=== PATIENT | male | born 1980 | race Caucasian/White ===

== ENCOUNTER → 2018-03-10 10:24 | Outpatient (CLI) | payer OTHER, SELFPAY ==
--- NOTE | 2018-03-10 10:30 | XR_ITS ---
XR chest 2V HISTORY: ITS.REASON: CHEST PAIN ORDERING PHYSICIAN: Ginny Hernandez PATIENT AGE: 38 years COMPARISON: 01/21/2011 FINDINGS: The cardiomediastinal silhouette and pulmonary vascularity are within normal limits. The lungs are clear without infiltrates, suspicious nodules, or pleural effusions. Calcified granulomas present in the lingula. No acute bony abnormalities. IMPRESSION: No change with no acute finding
== END ==
PROVIDERS: PCP Nurse Practitioner; Visit Provider Nurse Practitioner
DX: R07.9 Chest pain, unspecified (principal)
CPT/HCPCS: 71046

== ENCOUNTER → 2018-03-18 14:57 | Outpatient (CLI) | payer OTHER, SELFPAY ==
--- NOTE | 2018-03-18 15:03 | US_ITS ---
US scrotum HISTORY: Painful testicular lumps ITS.REASON: TESTICULAR LUMP ORDERING PHYSICIAN: Ginny Hernandez PATIENT AGE: 38 years FINDINGS: The right testicle measures 4.3 x 2.4 x 2.8 cm. No testicular mass evident. Blood flow is present within the right testicle. Epididymis has an unremarkable appearance. Only minimal amount fluid noted on the right. Left testicle measures 3.9 x 2.5 x 3 cm. No mass evident. Blood flow is present. There is a small left hydrocele. Septations are present within the hydrocele inferiorly corresponding to the palpable area of interest. IMPRESSION: 1. No intratesticular nodule or mass. 2. Bilateral testicular blood flow is present. 3. There is a small left hydrocele with septations along the inferior margin corresponding to the palpable abnormality
== END ==
PROVIDERS: Family Provider Nurse Practitioner; PCP Nurse Practitioner; Visit Provider Nurse Practitioner
DX: N50.9 Disorder of male genital organs, unspecified (principal)
CPT/HCPCS: 76870

== ENCOUNTER → 2018-11-19 09:58 | Outpatient (CLI) | payer OTHER, SELFPAY ==
--- NOTE | 2018-11-19 10:11 | XR_ITS ---
XR shoulder LT min 2V HISTORY: Posttraumatic pain ITS.REASON: LEFT SHOULDER INJURY ORDERING PHYSICIAN: Lashae Murguia PATIENT AGE: 38 years Comparison: None FINDINGS: No fracture or dislocation. No lytic or blastic change. There is normal mineralization. The joint spaces are well-preserved. No significant degenerative/arthritic changes. No erosive changes evident. Incidental bone island noted in the humeral head IMPRESSION: Negative, no acute finding
== END ==
PROVIDERS: PCP Nurse Practitioner Family; Visit Provider Nurse Practitioner Family
DX: S49.92XA Unspecified injury of left shoulder and upper arm, initial encounter (principal); M25.612 Stiffness of left shoulder, not elsewhere classified
CPT/HCPCS: 73030

== ENCOUNTER → 2018-12-09 12:43 | Outpatient (CLI) | payer OTHER, SELFPAY ==
--- NOTE | 2018-12-09 12:47 | MR_ITS ---
MR shoulder LT wo con HISTORY:Left shoulder pain with limited range of motion ITS.REASON: Lt shoulder injury ORDERING PHYSICIAN: Radha Shea MD PATIENT AGE: 38 years Comparison: 11/19/2018 TECHNIQUE: Standard multiplanar multiecho sequences are performed without contrast. FINDINGS: There is mild hypertrophy of the acromioclavicular joint without significant impingement from the acromioclavicular hypertrophy. There are hypertrophic changes of the undersurface of the acromion with subacromial stenosis. Subacromial space is approximately 5 mm. No evidence of rotator cuff tear or significant tendinopathy/tendinosis of the distal infraspinatus tendon. There is some slight increase in T2 signal involving the distal aspect of the subscapularis suggesting mild tendinopathy/tendinosis. Teres minor tendon has an unremarkable appearance. Bicipital tendon is in place. No evidence of labral tear. No significant effusion. No fracture or bone bruise apparent. There is a small bone within the humeral head. No significant degenerative change of the humeral head or greater tuberosity. IMPRESSION: 1. No evidence of rotator cuff tear. 2. Mild tendinopathy/tendinosis of the subscapularis tendon. 3. Subacromial stenosis from a spur along the undersurface of the acromium. A type II acromion is noted and there is mild hypertrophy of the acromioclavicular joint.
== END ==
PROVIDERS: PCP Nurse Practitioner Family; Visit Provider Orthopaedic Surgery
DX: S49.92XA Unspecified injury of left shoulder and upper arm, initial encounter (principal); M25.512 Pain in left shoulder
CPT/HCPCS: 73221

== ENCOUNTER → 2019-05-18 10:30 | Outpatient (CLI) | payer OTHER, SELFPAY ==
--- NOTE | 2019-05-18 10:36 | XR_ITS ---
XR wrist RT min 3V HISTORY pain and swelling ITS.REASON: RT WRIST PAIN,PAIN IN JOINTS ORDERING PHYSICIAN: Lashae Murguia APRN PATIENT AGE: 39 years Comparison: None FINDINGS: No acute fracture or dislocation evident. There is a small calcific density at the base and ulnar aspect of the fifth metacarpal. His could be due to an old injury. The remaining wrist has an unremarkable appearance. IMPRESSION: Faint calcification at the base of the fifth metacarpal. This could be due to an old injury. Otherwise negative.
--- NOTE | 2019-05-18 10:36 | XR_ITS ---
XR hand RT min 3V HISTORY: Pain in hand ITS.REASON: RT WRIST PAIN,PAIN IN JOINTS ORDERING PHYSICIAN: Lashae Murguia APRN PATIENT AGE: 39 years COMPARISON: None FINDINGS: No fracture or dislocation. No lytic or blastic change. There is normal mineralization.. The joint spaces are well-preserved. No significant degenerative/arthritic changes. No erosive changes evident.. IMPRESSION: Negative, no acute finding
== END ==
PROVIDERS: PCP Nurse Practitioner Family; Visit Provider Nurse Practitioner Family
DX: M25.531 Pain in right wrist (principal); M25.541 Pain in joints of right hand
CPT/HCPCS: 73110; 73130

== ENCOUNTER → 2019-06-02 09:17 | Outpatient (CLI) | payer OTHER, SELFPAY ==
--- NOTE | 2019-06-02 09:19 | US_ITS ---
US abdomen limited History:L liver enzymes, mid abdominal tenderness Ordering Physician:Florinda Cooney MD Patient Age: 39 years Comparison:None Findings: Pancreas:Unremarkable. No obvious mass or abnormal fluid collection. No ductal dilatation Liver:There is generalized increase echogenicity of liver consistent with fatty liver.. No obvious mass or abnormal fluid collection. No ductal dilatation Right Kidney:Unremarkable. Normal size and echogenicity. No hydronephrosis Gallbladder:No gallstones, gallbladder wall thickening, pericholecystic fluid, or biliary dilatation. Small amount sludge within the gallbladder Impression: 1. Fatty liver. 2. Small amount of gallbladder sludge. No gallstones or other significant anomalies
== END ==
PROVIDERS: PCP Internal Medicine Rheumatology; Visit Provider Internal Medicine Rheumatology
DX: F10.20 Alcohol dependence, uncomplicated (principal); R94.5 Abnormal results of liver function studies
CPT/HCPCS: 76705

== ENCOUNTER → 2019-06-08 09:34 | Outpatient (POV) | payer OTHER, SELFPAY | PROVIDERS: Visit Provider Specialist | DX: M25.531 Pain in right wrist (principal); R20.0 Anesthesia of skin | CPT/HCPCS: 95886; 95908 ==

== ENCOUNTER → 2019-11-09 10:11 | Outpatient (CLI) | payer OTHER, SELFPAY ==
--- NOTE | 2019-11-09 10:16 | NM_ITS ---
PROCEDURE: NM HEPATOBILIARY W PHARM CLINICAL INDICATION: RUQ PAIN COMPARISON: US GALLBLADDER from 11/02/2019 TECHNIQUE: DOSE: 8.71 mCi technetium Choletec and 1.9 mcg of CCK FINDINGS: Homogeneous activity is present within the hepatic parenchyma. Activity is present in the gallbladder by 10 minutes. Activity is present in the small bowel by 40 minutes. The gallbladder ejection fraction is calculated to be 99 percent. CCK-The patient did not report pain or other symptoms during CCK infusion. IMPRESSION: Unremarkable hepatobiliary scan with normal gallbladder ejection fraction Dictated by: Sourav Marr MD 11/09/2019 14:50 Electronically signed by Sourav Marr MD in [place] 11/09/2019 14:50
== END ==
PROVIDERS: PCP Nurse Practitioner Family; Visit Provider Nurse Practitioner Family
DX: K82.8 Other specified diseases of gallbladder (principal); R10.11 Right upper quadrant pain
CPT/HCPCS: 78227; A9537; J2805

== ENCOUNTER → 2020-11-18 15:49 | Outpatient (CLI) | payer BC, SELFPAY ==
--- NOTE | 2020-11-18 16:09 | XR_ITS ---
PROCEDURE: XR CHEST 2V CLINICAL HISTORY: CHEST PAIN Left-sided chest pain COMPARISON: CT [facility] CT CHEST W/O CONTRAST from 03/22/2016 CR CXR2V XR chest 2V from 03/10/2018 FINDINGS: The cardiomediastinal silhouette and pulmonary vascularity are within normal limits. Patchy increased markings left perihilar region and in the left retrocardiac area suspicious for perihilar left lower lobe infiltrate. Right lung is clear. No acute bony abnormalities. IMPRESSION: Left perihilar and left lower lobe infiltrate. Suggest following till clear Dictated by: Sourav Marr MD 11/18/2020 16:31 Sourav Marr MD in [place] 11/18/2020 16:31
== END ==
PROVIDERS: PCP Nurse Practitioner Family; Visit Provider Nurse Practitioner Family
DX: R07.9 Chest pain, unspecified (principal); R06.02 Shortness of breath
CPT/HCPCS: 71046

== ENCOUNTER → 2020-11-22 09:10 | Outpatient (CLI) | payer BC, SELFPAY ==
[2020-11-22 09:53] LABS: Basophils # 0.1 K/mm3 (0-0.2); Basophils % 1.2 % (0.1-2.0); Eosinophils # 0.4 K/mm3 (0.0-0.4); Hematocrit 53.5 % (42.0-52.0); Lymphocytes # 2.3 K/mm3 (0.7-4.5); Lymphocytes % 30.6 % (10-50); Mean Corpuscular HGB Conc 33.6 g/dL (31.8-35.4); Mean Corpuscular Hemoglobin 32.7 pg (27.0-31.2); Mean Corpuscular Volume 97.3 fl (80-94); Mean Platelet Volume 7.3 fl (7.4-10.4); Monocytes # 0.6 K/mm3 (0.1-1.0); Monocytes % 7.9 % (1.7-9.3); Neutrophils # 4.2 K/mm3 (1.8-7.8); Neutrophils % 55.3 % (37.0-80.0); Platelet Count 278 K/mm3 (142-424); White Blood Count 7.5 K/mm3 (4.8-10.8)
[2020-11-22 10:11] LABS: Chloride 105 mmol/L (98-107)
[2020-11-22 10:12] LABS: Potassium 4.4 mmoL/L (3.5-5.1); Sodium 136 mmol/L (136-145)
[2020-11-22 10:14] LABS: Alanine Aminotransferase 28 U/L (12-78); Alkaline Phosphatase 88 U/L (38-126); Anion Gap 9.4 mEq/L (5-15); Aspartate Amino Transferase 31 U/L (17-59); Bilirubin,Total 0.4 mg/dl (0.2-1.3); Blood Urea Nitrogen 18 mg/dl (9-20); Carbon Dioxide 26 mmol/L (22.0-30.0); Estimated Glomerular Filt Rate 82 ml/min (>60); GFR (African American) 99 ML/MIN (>60)
[2020-11-22 10:15] LABS: Albumin/Globulin Ratio 1.5 (1.1-1.8); Calcium 9.3 mg/dl (8.4-10.2); Cholesterol 174 mg/dl (140-200); Globulin 2.7 g/dL (1.3-3.2); Glucose 99 mg/dl (74-100); HDL Cholesterol 59 mg/dl (40-60); Total Protein,Serum 6.7 g/dl (6.3-8.2); Triglycerides 111 mg/dl (30-150); VLDL Cholesterol 22 mg/dL (0-40)
[2020-11-22 10:16] LABS: Bilirubin,Direct 0.1 mg/dl (0.0-0.4)
[2020-11-22 10:21] LABS: C-Reactive Protein 5.7 mg/L (0-4)
[2020-11-22 10:26] LABS: Direct LDL Cholesterol 96.27 mg/dL (100-129)
[2020-11-22 10:27] LABS: Troponin I < 0.01 ng/ml (0.00-0.034)
[2020-11-22 10:30] LABS: Free T4 (Free Thyroxine) 0.92 ng/dl (0.78-2.19)
[2020-11-22 16:51] LABS: Chol/HDL Ratio 2.9 (1-3.5)
== END ==
PROVIDERS: Nurse Practitioner Family; Visit Provider Urology
DX: R00.2 Palpitations (principal); R07.9 Chest pain, unspecified; F10.10 Alcohol abuse, uncomplicated; F17.200 Nicotine dependence, unspecified, uncomplicated; R06.83 Snoring; R40.0 Somnolence; Z82.49 Family history of ischemic heart disease and other diseases of the circulatory system
CPT/HCPCS: 36415; 80053; 80061; 82248; 83735; 84439; 84443; 84484; 85025; 86140

== ENCOUNTER → 2020-12-06 06:44 | Outpatient (CLI) | payer BC, SELFPAY ==
--- NOTE | 2020-12-06 06:45 | CA_ITS ---
APPROVED REPORT Exam: Exercise Treadmill Technologist: Kathe Enriquez Ht: 6 ft 0 in Wt: 213 lbs BSA: 2.19 m2 HR: 62 bpm BP: 115/82 mmHg Indications: Chest pain Medical History Medications: ADALimumab,,,,, Stress Test Details Test: Carlos HR Resting HR: 73 bpm Max Heart Rate (APMHR): 178 bpm Max HR Achieved: 149 bpm Target HR (85% APMHR): 151 bpm % of APMHR: 83 Recovery HR: 95 bpm BP Resting BP: 115.0/82.0 mmHg Max BP: 172.0/84.0 mmHg Recovery BP: 128.0/89.0 mmHg ECG Resting ECG: Normal sinus rhythm, NS ST-T abnormalities Clinical Exercise duration: 09:47 min Highest Stage Achieved: Exercise capacity: 10.1 METs Stress ECG Conclusion Patient exercised 9:47 on Carlos Protocol. Test stopped due to shortness of air, fatigue. Symptoms: Transient mild chest pain in early stages of exercise. Arrhythmias/Ectopy: Occasional PAC ST-T Changes: Normal ST response to exercise Conclusion: Normal GXT. Myoview images reported separately. Test Summary Stage 3 03:00 14.0 3.4 134 . . . Myoview Injected REST . . . . . . . Standing REST 03:22 0.0 0.0 73 . 115/ 82 . . Stage 1 01:00 10.0 1.7 95 . . . . Stage 1 02:00 10.0 1.7 97 . . . . Stage 1 03:00 10.0 1.7 102 . 152/ 78 . . Stage 2 . . . . . . . Chest pain Stage 2 01:00 12.0 2.5 106 . . . . Stage 2 02:00 12.0 2.5 110 . . . . Stage 2 03:00 12.0 2.5 112 . 172/ 84 . . Stage 3 01:00 14.0 3.4 124 . . . . Stage 3 02:00 14.0 3.4 129 . . . . Stage 3 . . . . . . . Myoview Injected Stage 3 03:00 14.0 3.4 134 . . . . Stage 4 00:47 16.0 4.2 149 . . . Stop exercise at 09:47 RECOVERY 01:00 0.0 0.0 123 . 165/ 70 . . RECOVERY 02:00 0.0 0.0 110 . 165/ 70 . . RECOVERY 03:00 0.0 0.0 85 . 165/ 70 . . RECOVERY 04:00 0.0 0.0 98 . 157/ 86 . . RECOVERY 05:00 0.0 0.0 93 . 157/ 86 . . RECOVERY 05:19 0.0 0.0 95 . 128/ 89 . . Electronically signed by : George Ramirez, 12/07/2020 06:42:37
--- NOTE | 2020-12-06 06:45 | NM_ITS ---
APPROVED REPORT Exam: Nuclear Stress Test Indication: Chest pain, SOB, Tobacco use, Family history Patient Location: Outpatient Stress Tech: Kathe Enriquez NM Tech:Lizzeth Falcon, ARRT, RT (R)(N) Ht: 6 ft 0 in Wt: 218 lbs HR: 62 bpm BP: 115/82 mmHg BSA: 2.21 m2 History: Chest pain, SOB, Tobacco use, Family history Procedure: Patient exercised on Carlos protocol 9:45 minutes and sec, resting heart rate 62 bpm, resting blood pressure 115/82 mmHg, with exercise maximum heart rate achived was 149 bpm which is 84 % of the maximum predicted heart rate and blood pressure was 172/84 mmHg. Test was stopped due to SOA and fatigue. Patient has Good exercise capacity, achieved 10.1 METs of workload on treadmill, the blood pressure response to exercise was Adequate resting electrocardiogram showed sinus rhythm,. Electrocardiogram With exercise there is less than 1.[address] segment depression noted from the baseline EKG. The EKG portion of the exercise Myoview is nondiagnostic as patient did not achieve the target heart rate. Cardiac Stress and Resting SPECT Images: Cardiac Stress and Resting SPECT images were obtained using technetium 99m Myoview 32.5 mCi stress and 10.42 mCi at rest. Gated SPECT for analysis of segmental wall motion and calculation of the ejection fraction also done. Cardiac stress and resting SPECT images show uniform myocardial activity without segmental perfusion abnormality, computer derived ejection fraction is 52% with no regional wall motion abnormality, right ventricle is normal size and contractility. Conclusion: 1. The EKG portion of the exercise Myoview is nondiagnostic as patient did not achieve the target heart rate, patient has good exercise capacity achieved 10.1 mets of workload on treadmill, the blood pressure response to exercise was adequate, there was no exercise-induced chest discomfort. 2. No scintigraphic evidence of reversible ischemia seen at this level of exercise, computer derived ejection fraction is 52% with no regional wall motion abnormality. Electronically signed by : George Ramirez, 12/07/2020 06:55:55
--- NOTE | 2020-12-06 06:45 | CA_ITS ---
APPROVED REPORT EXAM: Comprehensive 2D, Doppler, and color-flow Echocardiogram Insole Cementer: Akilah Pop CRT Ht: 6 ft 0 in Wt: 213lbs BSA: 2.19 BP: 124/84 mmHg Indications: Abnormal ECG, Shortness of Breath, Fatigue, smoker, palpitations, alcohol use, 2D Dimensions LVOT 2.02 cm (M/F) 1.5-2.5 LVEF ([place]) 48.00 % LV Volume 138.90 mL M-Mode Dimensions RVDd 2.61 cm (0.9-2.6) LVDd 6.16 cm (3.5-5.7) LVDs 4.82 cm (3.5-5.7) IVSd 0.93 cm (0.6-1.1) PWd 0.62 cm (0.6-1.1) EF (Teich) 43.20% FS 21.80% EDV (Teich) 191.10 mL ESV (Teich) 108.60 mL LV Diastology E Decel Time 150.00 (160-240 msec) E/A Ratio 1.54 MED E' 9.10 (< 7 cm/sec) E'/MED E' Ratio 8.19 (>14) LAT E' 9.10 (<10 cm/sec) E/LAT E' Ratio 8.19 (>14) Aortic Valve AO Peak GR. 7.80 mmHg Mitral Valve MV E Max Manoj. 75.00 (40-130 cm/s) MV A Velocity 48.00 (40-130 cm/s) E/A Ratio 1.54 MV Decel. Time 150.00 (160-240 ms) MV PHT 44.00 ms Pulmonary Valve PV Peak Velocity 58.00 (50-150 cm/s) Tricuspid Valve TR P. Velocity 167.00 cm/s RAP Estimate 10.00 mmHg RVSP 21.20 mmHg Left Ventricle Left atrium is normal size, left ventricle is normal size, there is no concentric left ventricular hypertrophy, visually estimated ejection fraction 55% with no regional wall motion abnormality, diastolic parameters are within normal range. Right Ventricle Right atrium and right ventricle are normal size and contractility. Aortic Valve Aortic valve is minimally thickened and fibrosed, there is no aortic stenosis or aortic insufficiency. Mitral Valve Mitral valve is grossly normal, there is trace mitral regurgitation. Tricuspid Valve Tricuspid valve grossly normal, there is trace tricuspid regurgitation, tricuspid regurgitation jet velocity is inadequate for calculation of the right ventricular systolic pressure. Pulmonic Valve Pulmonic valve is poorly visualized. Great Vessels Aortic root is normal size. Pericardium No significant pericardial effusion noted. Conclusion 1. Normal left ventricular size, preserved left ventricular systolic function, visually estimated ejection fraction 55% with no regional wall motion abnormality, diastolic parameters are within normal range. 2. Trace mitral and tricuspid regurgitation. 3. No significant pericardial effusion noted. Electronically signed by : George Ramirez, 12/07/2020 06:09:08
--- NOTE | 2020-12-06 08:29 | HMH.ITSHM ---
Current Home Medications as stated by this patient Kirk Austin or accounting representative. []ADALIMUMAB
== END ==
PROVIDERS: PCP Nurse Practitioner Family; Visit Provider Urology
DX: R07.9 Chest pain, unspecified (principal); R00.2 Palpitations; F10.10 Alcohol abuse, uncomplicated; F17.200 Nicotine dependence, unspecified, uncomplicated; R06.83 Snoring; R40.0 Somnolence; Z82.49 Family history of ischemic heart disease and other diseases of the circulatory system
CPT/HCPCS: 78452; 93017; 93306; A9502

== ENCOUNTER → 2020-12-22 12:49 | Outpatient (CLI) | payer BC, SELFPAY ==
--- NOTE | 2020-12-22 12:49 | CT_ITS ---
Procedure: CT ANGIO NECK CLINICAL HISTORY: Numbness in arm CHEST PAIN INTO LEFT ARM, NUMBNESS IN LEFT HAND NO PRIOR 100ML ISO 370, 40ML SALINE COMPARISON: No exams were available for comparison TECHNIQUE: IV Contrast: 100ml Isovue 370 Axial images obtained with sagittal and coronal reformats. All CT scans at the facility use one or more dose reduction, viz: automated exposure control, ma/kV adjustment per patient size (including targeted exams where dose is matched to indication, i.e. head), or iterative reconstruction technique. FINDINGS: The aortic arch has an unremarkable appearance. Right carotid: Right common and internal carotid arteries have an unremarkable appearance without evidence of stenosis dissection or ulceration. Left carotid: Right common and internal carotid artery have an unremarkable appearance without stenosis ulceration or dissection. Vertebrals: The vertebral arteries are symmetric. No stenosis occlusion or ulceration apparent. No evidence of dissection. Incidental note is made moderate mucosal thickening of the left maxillary sinus with a small air-fluid level and mild mucosal thickening of the ethmoid sinuses in the sphenoid sinus. There is mild prominence of the adenoids. There are scattered mildly prominent lymph nodes in the neck the measuring up to 2.5 by 1 cm in the left submandibular region IMPRESSION: 1. Negative CT angiogram of the neck. 2. Mild paranasal sinus disease. 3. Mild cervical adenopathy. Dictated by: Sourav Marr MD 12/23/2020 15:10 Sourav Marr MD in [place] 12/23/2020 15:10
--- NOTE | 2020-12-22 12:49 | CT_ITS ---
PROCEDURE: CT CHEST WO/W CON CLINCAL INDICATION: chest pain Chest pain into left arm/numbness in hand COMPARISON: CT [facility] CT CHEST W/O CONTRAST from 03/22/2016 TECHNIQUE: IV Contrast: 75ml Isovue 370 Axial images obtained with sagittal and coronal reformats. All CT scans at the facility use one or more dose reduction, viz: automated exposure control, ma/kV adjustment per patient size (including targeted exams where dose is matched to indication, i.e. head), or iterative reconstruction technique. FINDINGS: HEART AND MEDIASTINAL STRUCTURES: Scattered mildly prominent mediastinal lymph nodes are present slightly larger compared to the previous exam. Largest node is in the subcarinal region measuring to 2 point 1.3 cm previously 1.9 0.8 cm. No evidence of aortic aneurysm or dissection. There are few small axillary lymph nodes also present. LUNGS AND PLEURAL SPACES: No lobar consolidation or collapse is evident. There is some mild bronchial thickening. No suspicious pulmonary nodules. Calcified granuloma is present within the lingula. BONY STRUCTURES: No acute bony abnormalities apparent. UPPER ABDOMEN: Fatty liver ADDITIONAL FINDINGS: No other significant abnormalities. IMPRESSION: Mildly prominent mediastinal lymph nodes slightly more prominent when compared to the previous exam along with mildly prominent axillary lymph nodes which are not significantly changed. No lobar consolidation or collapse with no acute finding Dictated by: Sourav Marr MD 12/23/2020 15:03 Sourav Marr MD in [place] 12/23/2020 15:03
== END ==
PROVIDERS: PCP Nurse Practitioner Family; Visit Provider Internal Medicine Cardiovascular Disease
DX: R07.9 Chest pain, unspecified (principal); R00.2 Palpitations
CPT/HCPCS: 70498; 71270; Q9967

== ENCOUNTER → 2021-02-21 12:35 | Outpatient (CLI) | payer BC, SELFPAY ==
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
[2021-02-21 13:16] LABS: Basophils # 0.1 K/mm3 (0-0.2); Eosinophils # 0.4 K/mm3 (0.0-0.4); Eosinophils % 4.8 % (0.1-12.0); Hematocrit 50.1 % (42.0-52.0); Hemoglobin 16.8 g/dL (14.1-18.0); Lymphocytes # 2.4 K/mm3 (0.7-4.5); Lymphocytes % 32.7 % (10-50); Mean Corpuscular HGB Conc 33.6 g/dL (31.8-35.4); Mean Corpuscular Hemoglobin 31.5 pg (27.0-31.2); Mean Corpuscular Volume 93.8 fl (80-94); Mean Platelet Volume 7.5 fl (7.4-10.4); Monocytes # 0.5 K/mm3 (0.1-1.0); Monocytes % 7.3 % (1.7-9.3); Neutrophils # 4.1 K/mm3 (1.8-7.8); Neutrophils % 54.3 % (37.0-80.0); Platelet Count 309 K/mm3 (142-424); Red Blood Count 5.34 M/mm3 (4.60-6.20); Red Cell Distribution Width 13.2 % (11.5-17.5); White Blood Count 7.5 K/mm3 (4.8-10.8)
[2021-02-21 13:59] LABS: Chloride 106 mmol/L (98-107); Sodium 139 mmol/L (136-145)
[2021-02-21 14:00] LABS: Potassium 4.5 mmoL/L (3.5-5.1)
[2021-02-21 14:02] LABS: Alanine Aminotransferase 49 U/L (12-78); Albumin Level 4.6 g/dl (3.5-5.0); Albumin/Globulin Ratio 1.9 (1.1-1.8); Alkaline Phosphatase 87 U/L (38-126); Anion Gap 10.5 mEq/L (5-15); Aspartate Amino Transferase 50 U/L (17-59); Bilirubin,Total 0.7 mg/dl (0.2-1.3); Blood Urea Nitrogen 10 mg/dl (9-20); Carbon Dioxide 27 mmol/L (22.0-30.0); Estimated Glomerular Filt Rate 106 ml/min (>60); GFR (African American) 128 ML/MIN (>60); Globulin 2.4 g/dL (1.3-3.2)
[2021-02-21 14:03] LABS: Calcium 9.3 mg/dl (8.4-10.2); Glucose 79 mg/dl (74-100)
[2021-02-21 14:33] LABS: Thyroid Stimulating Hormone 1.55 uIU/mL (0.465-4.68)
[2021-02-21 14:37] LABS: Ferritin 145 ng/ml (17.9-464)
[2021-02-24 18:27] LABS: Antinuclear Antibodies (ANA) NEGATIVE
== END ==
PROVIDERS: PCP Nurse Practitioner Family; Visit Provider Nurse Practitioner Family
DX: M54.2 Cervicalgia (principal); M54.40 Lumbago with sciatica, unspecified side; L65.9 Nonscarring hair loss, unspecified
CPT/HCPCS: 36415; 72084; 80053; 82728; 84443; 85025; 86038

== ENCOUNTER 2021-06-24 02:38 | Emergency (ER) | payer BC, SELFPAY ==
[2021-06-24 02:39] VITALS: BP 133/92; PULSE 85; RESP 18; TEMP 36.8; O2SAT 97; BMI 31.8
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
[2021-06-24 02:55] VITALS: BP 133/92; PULSE 85; RESP 18; TEMP 36.8; O2SAT 97
== END 2021-06-24 03:02 | disposition home or self-care (01) ==
PROVIDERS: Emergency Provider Emergency Medicine; PCP Nurse Practitioner Family
DX: Z04.1 Encounter for examination and observation following transport accident (principal); V89.2XXA Person injured in unspecified motor-vehicle accident, traffic, initial encounter; K21.9 Gastro-esophageal reflux disease without esophagitis; F17.210 Nicotine dependence, cigarettes, uncomplicated
CPT/HCPCS: 99282

== ENCOUNTER → 2021-07-26 11:57 | Outpatient (CLI) | payer BC, SELFPAY ==
[2021-07-26 14:44] LABS: T4 (Thyroxine) 10.7 ug/dl (5.53-11.0)
[2021-07-26 14:57] LABS: Thyroid Stimulating Hormone 1.44 uIU/mL (0.465-4.68)
== END ==
PROVIDERS: Visit Provider Dermatology
DX: L63.0 Alopecia (capitis) totalis (principal); L71.8 Other rosacea
CPT/HCPCS: 36415; 84436; 84443

== ENCOUNTER 2021-07-29 21:07 | Emergency (ER) | payer BC, SELFPAY ==
[2021-07-29 21:07] VITALS: BP 130/85; PULSE 84; RESP 16; TEMP 36.7; O2SAT 98; BMI 28.7
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
[2021-07-29 21:30] VITALS: BP 105/75; PULSE 79; RESP 16; O2SAT 97
--- NOTE | 2021-07-29 21:40 | PC.NURSE ---
Liz. spoke with MD Bonnie at [facility] and pt has been accepted to ED.
[2021-07-29 22:00] VITALS: BP 129/82; PULSE 81; O2SAT 96
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
[2021-07-29 22:30] VITALS: BP 115/75; PULSE 77; RESP 18; O2SAT 96
--- NOTE | 2021-07-29 22:40 | PC.NURSE ---
Pt refusing to take EMS to [facility]. Pt has signed AMA form and is going to have family member take him to [facility] ED.
[2021-07-29 22:52] VITALS: BP 98/58; PULSE 84; RESP 16; TEMP 36.7; O2SAT 97
[2021-07-29 22:54] LABS: Chloride 104 mmol/L (98-107); Potassium 3.8 mmoL/L (3.5-5.1); Sodium 139 mmol/L (136-145)
[2021-07-29 22:57] LABS: Anion Gap 16.8 mEq/L (5-15); Blood Urea Nitrogen 16 mg/dl (9-20); Carbon Dioxide 22 mmol/L (22.0-30.0); Creatinine Clearance Estimated 144 mL/min (50-200); Estimated Glomerular Filt Rate 92 ml/min (>60); GFR (African American) 111 ML/MIN (>60); Glucose 100 mg/dl (74-100)
[2021-07-29 22:58] LABS: Calcium 8.9 mg/dl (8.4-10.2)
[2021-07-29 22:59] LABS: Basophils # 0.1 K/mm3 (0-0.2); Basophils % 0.9 % (0.1-2.0); Eosinophils # 0.1 K/mm3 (0.0-0.4); Eosinophils % 0.7 % (0.1-12.0); Hematocrit 49.4 % (42.0-52.0); Hemoglobin 15.9 g/dL (14.1-18.0); Lymphocytes # 3.1 K/mm3 (0.7-4.5); Lymphocytes % 32.9 % (10-50); Mean Corpuscular HGB Conc 32.1 g/dL (31.8-35.4); Mean Corpuscular Hemoglobin 31.4 pg (27.0-31.2); Mean Corpuscular Volume 97.7 fl (80-94); Mean Platelet Volume 8.1 fl (7.4-10.4); Monocytes # 0.4 K/mm3 (0.1-1.0); Monocytes % 4.6 % (1.7-9.3); Neutrophils # 5.6 K/mm3 (1.8-7.8); Neutrophils % 60.8 % (37.0-80.0); Platelet Count 357 K/mm3 (142-424); Red Blood Count 5.05 M/mm3 (4.60-6.20); Red Cell Distribution Width 12.8 % (11.5-17.5); White Blood Count 9.3 K/mm3 (4.8-10.8)
== END 2021-07-29 22:56 | disposition short-term general hospital (02) ==
PROVIDERS: Emergency Provider Emergency Medicine; PCP Nurse Practitioner Family
DX: S62.522B Displaced fracture of distal phalanx of left thumb, initial encounter for open fracture (principal); S60.943A Unspecified superficial injury of left middle finger, initial encounter; S60.945A Unspecified superficial injury of left ring finger, initial encounter; Z23 Encounter for immunization; W39.XXXA Discharge of firework, initial encounter; Y92.89 Other specified places as the place of occurrence of the external cause; K21.9 Gastro-esophageal reflux disease without esophagitis; F17.210 Nicotine dependence, cigarettes, uncomplicated
CPT/HCPCS: 73130; 80048; 85025; 90715; 96365; 96372; 96375; 99282

== ENCOUNTER 2021-08-14 18:35 | Inpatient (IN) | payer BC, SELFPAY ==
[2021-08-14] VITALS (10 sets, daily range): BP systolic 114–144; BP diastolic 65–94; PULSE 86–94; RESP 19–29; TEMP 36.8; O2SAT 94–98; BMI 28.7; BMI 28.3
--- NOTE | 2021-08-14 18:35 | ECG_ITS ---
APPROVED REPORT Exam: Resting ECG HR:93 bpm ECG Measurements Heart Rate 93 AXES [place] 144 P 44 QRSd 82 QRS 50 QT 334 T 63 QTc 415 Conclusion Normal sinus rhythm Normal ECG Electronically signed by : Jerad Castaneda MD 08/16/2021 07:30:54
--- NOTE | 2021-08-14 18:43 | XR_ITS ---
PROCEDURE INFORMATION: Exam: XR Chest Exam date and time: 08/14/2021 6:43 PM Age: 41 years old Clinical indication: Sternal or substernal pain; Patient HX: Chest pain, smoker. ; Additional info: Cp TECHNIQUE: Imaging protocol: XR of the chest. Views: 1 view. COMPARISON: CT CHEST WO/W CON 12/22/2020 1:25 PM FINDINGS: Lungs: There is airspace disease in the left lower lobe concerning for pneumonia. Mild interstitial opacities also in the right lung base. Pleural spaces: Unremarkable. No pleural effusion. No pneumothorax. Heart/Mediastinum: Unremarkable. No cardiomegaly. Bones/joints: Unremarkable. Other findings: Mild left effusion. IMPRESSION: Bilateral lower lobe pneumonia left greater than right.
--- NOTE | 2021-08-14 18:49 | PC.NURSE ---
POISON CONTROL CONTACTED, SPOKE WITH DEANDRA. CHEST XRAY RECOMMENDED. CONCERN FOR ASPIRATION PNA
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
[2021-08-14 19:18] LABS: Chloride 95 mmol/L (98-107); Potassium 4.2 mmoL/L (3.5-5.1); Sodium 129 mmol/L (136-145)
[2021-08-14 19:21] LABS: Alanine Aminotransferase 28 U/L (12-78); Albumin Level 4.2 g/dl (3.5-5.0); Albumin/Globulin Ratio 1.4 (1.1-1.8); Alkaline Phosphatase 97 U/L (38-126); Anion Gap 14.2 mEq/L (5-15); Aspartate Amino Transferase 32 U/L (17-59); Bilirubin,Total 1.2 mg/dl (0.2-1.3); Blood Urea Nitrogen 12 mg/dl (9-20); Carbon Dioxide 24 mmol/L (22.0-30.0); Creatinine Clearance Estimated 144 mL/min (50-200); Estimated Glomerular Filt Rate 92 ml/min (>60); GFR (African American) 111 ML/MIN (>60); Globulin 3.1 g/dL (1.3-3.2); Total Protein,Serum 7.3 g/dl (6.3-8.2)
[2021-08-14 19:22] LABS: Glucose 118 mg/dl (74-100)
[2021-08-14 19:26] LABS: Basophils # 0.1 K/mm3 (0-0.2); Basophils % 0.2 % (0.1-2.0); Hematocrit 48.7 % (42.0-52.0); Hemoglobin 16.3 g/dL (14.1-18.0); Lymphocytes # 1.4 K/mm3 (0.7-4.5); Lymphocytes % 6.5 % (10-50); Mean Corpuscular HGB Conc 33.5 g/dL (31.8-35.4); Mean Corpuscular Hemoglobin 31.9 pg (27.0-31.2); Mean Corpuscular Volume 95.2 fl (80-94); Mean Platelet Volume 7.2 fl (7.4-10.4); Monocytes # 1.2 K/mm3 (0.1-1.0); Monocytes % 5.6 % (1.7-9.3); Neutrophils # 18.5 K/mm3 (1.8-7.8); Neutrophils % 87.6 % (37.0-80.0); Platelet Count 273 K/mm3 (142-424); Red Blood Count 5.12 M/mm3 (4.60-6.20); Red Cell Distribution Width 12.3 % (11.5-17.5); White Blood Count 21.1 K/mm3 (4.8-10.8)
[2021-08-14 19:31] LABS: MANUAL DIFFERENTIAL MANUAL DIFFERENTIAL (MANUAL DIFF)
[2021-08-14 19:33] LABS: Troponin I < 0.01 ng/ml (0.00-0.034)
--- NOTE | 2021-08-14 19:44 | PC.NURSE ---
spoke with dr ling. ok to admit.
[2021-08-14 20:05] LABS: Coronavirus 19, PCR Not Detected (NotDetected); Influenza A, PCR Not Detected (NotDetected); Influenza B, PCR Not Detected (NotDetected)
[2021-08-14 20:27] LABS: Lymphocytes % 11 % (10-50); Monocytes % 3 % (2-9); Neutrophils % 86 % (42-76); Platelet Estimate Normal; Stomatocytes 1+; Total Cells Counted 100
--- NOTE | 2021-08-14 21:41 | PC.NURSE ---
receiving call from poison control. updated to status
[2021-08-14 22:42] LABS: Troponin I < 0.01 ng/ml (0.00-0.034)
[2021-08-15] VITALS (15 sets, daily range): BP systolic 105–157; BP diastolic 59–87; PULSE 81–117; RESP 18–24; TEMP 36.7–38.3; O2SAT 92–99; BMI 28.3
--- NOTE | 2021-08-15 00:15 | PC.NURSE ---
Verbal order obtained to d/c admission monitor and storage bin tender received at this time.
[2021-08-15 01:49] LABS: Troponin I < 0.01 ng/ml (0.00-0.034)
--- NOTE | 2021-08-15 02:12 | PC.NURSE ---
PT ARRIVED TO FLOOR VIA STRETCHER FROM ED W/STAFF AT 0212
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
[2021-08-15 07:16] LABS: Basophils % 0.1 % (0.1-2.0); Hematocrit 43.2 % (42.0-52.0); Lymphocytes # 1.1 K/mm3 (0.7-4.5); Lymphocytes % 5.7 % (10-50); Mean Corpuscular HGB Conc 33.2 g/dL (31.8-35.4); Mean Corpuscular Hemoglobin 32.1 pg (27.0-31.2); Mean Corpuscular Volume 96.6 fl (80-94); Monocytes % 5.1 % (1.7-9.3); Neutrophils # 17.7 K/mm3 (1.8-7.8); Neutrophils % 89.1 % (37.0-80.0); Platelet Count 234 K/mm3 (142-424); Red Blood Count 4.47 M/mm3 (4.60-6.20); Red Cell Distribution Width 12.3 % (11.5-17.5); White Blood Count 19.8 K/mm3 (4.8-10.8)
[2021-08-15 07:19] LABS: Anion Gap 11.7 mEq/L (5-15); Blood Urea Nitrogen 10 mg/dl (9-20); Calcium 8.5 mg/dl (8.4-10.2); Carbon Dioxide 25 mmol/L (22.0-30.0); Chloride 99 mmol/L (98-107); Creatinine Clearance Estimated 183 mL/min (50-200); Estimated Glomerular Filt Rate 123 ml/min (>60); GFR (African American) 149 ML/MIN (>60); Glucose 107 mg/dl (74-100); Potassium 3.7 mmoL/L (3.5-5.1); Sodium 132 mmol/L (136-145)
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
[2021-08-15 07:27] LABS: MANUAL DIFFERENTIAL MANUAL DIFFERENTIAL (MANUAL DIFF)
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
[2021-08-15 08:52] LABS: Lymphocytes % 5 % (10-50); Monocytes % 3 % (2-9); Neutrophils % 92 % (42-76); Total Cells Counted 100
[2021-08-15 08:53] LABS: Platelet Estimate Normal
--- NOTE | 2021-08-15 09:26 | CT_ITS ---
PROCEDURE: CT CHEST W CON CLINCAL INDICATION: pna Pneumonia, shortness of breath, chest pain COMPARISON: CT CT CHEST WO/W CON from 12/22/2020 TECHNIQUE: IV Contrast: 75ml Isovue 370 Axial images obtained with sagittal and coronal reformats. All CT scans at the facility use one or more dose reduction, viz: automated exposure control, ma/kV adjustment per patient size (including targeted exams where dose is matched to indication, i.e. head), or iterative reconstruction technique. FINDINGS: HEART AND MEDIASTINAL STRUCTURES: There are few mildly prominent mediastinal lymph nodes slightly larger compared to the previous exam. These could be reactive in nature. No evidence of extraluminal mediastinal gas or abscess. The esophagus has an unremarkable appearance. LUNGS AND PLEURAL SPACES: The right lung is clear. There is dense consolidation within the lingula in the anterior segment of the left upper lobe consistent with diffuse pneumonia. There is a small left pleural effusion also with dense consolidation/volume loss in the left lower lobe posteriorly. No obvious abscess. In the left upper lobe there is a lobulated area of soft tissue density measuring 2.8 by 2 cm probably related to an area of dense consolidated lung not readily apparent on a prior CT 12/22/2020. The left hemidiaphragm is elevated BONY STRUCTURES: No acute bony abnormalities apparent. UPPER ABDOMEN: Unremarkable. ADDITIONAL FINDINGS: No other significant abnormalities. IMPRESSION: 1. No evidence of mediastinal air that would indicate esophageal rupture. No evidence of mediastinitis 2. Severe pneumonia in the left upper lobe and lingula with dense consolidation or volume loss in the left lower lobe with small left pleural effusion. Dictated by: Sourav Marr MD 08/15/2021 10:49 Sourav Marr MD in [place] 08/15/2021 10:49
[2021-08-15 10:03] LABS: Hemoglobin 14.3 g/dL (14.1-18.0)
--- NOTE | 2021-08-15 16:50 | HMH.PULMCON ---
*Admission Date: 08/14/21 *Reason for consult:: Toxic ingestion, hypoxic respiratory failure *History of present illness: Mr. Austin is a 41-year-old male significant smoking history current smoker admits respiratory distress at baseline however not using any inhalers presented hospital with accidental ingestion of 2 large gulps of tiki torch fuel followed by nausea vomiting and possible aspiration. Pulmonary was called for further management. [facility] History Medical History: Reports:: Gastroesophageal Reflux Disease(GERD) Denies:: Cancer, Chronic Obstructive Pulmonary Disease (COPD), Diabetes Mellitus Type 1, Diabetes Mellitus Type 2, MRSA *Have you ever received a pneumonia vaccine?: No *Have you received a flu vaccine this season?: No Other Medical History: Reports: Arthritis, Other (Rheumatoid arthritis) Laterality Cases: Bilateral: Tonsillectomy Other Surgeries: Yes: No Previous Surgery, Other Amputation: No Fractures: No - *Social History Last grade of school completed: High school graduate Smoking Status: Current every day smoker Tobacco Type: cigarettes # Packs/Day (cigarettes): 2 #Yrs smoked (if former smoker): 30 Alcohol Intake: current Alcohol Intake Frequency:: 3 or more drinks per day Substance Use Type: denies use *Occupational Status:: employed Housing: house *Travel in the last 8 weeks: None Family Hx:: Hypertension ROS - Review of Systems Review of systems:: unable to obtain ( ) - Card Reports shortness of breath, Reports shortness of breath with activity - Resp Respiratory: Reports chest congestion, Reports cough, Reports excessive phlegm production, Reports cough with sputum production - GI Gastrointestingal: Reports: abdominal pain, belching - [place] Musculoskeletal: Denies back pain, Reports deformity - Psych Reports abnormal sleep pattern Meds Home Medications Medication Instructions Recorded Confirmed Type No Known Home Medications 08/15/21 08/15/21 History Allergies Allergy/AdvReac Type Severity Reaction Status Date / Time No Known Allergies Allergy Verified 08/14/21 18:48 Exam - Constitutional Constitutional:: Present: no acute distress, comfortable - HENMT Exam HENMT: Present: normocephalic, atraumatic - Eye Exam Eyes:: Present: normal appearance both eyes and related structures - Neck Exam Neck:: Present: normal visual inspection - Respiratory Exam Respiratory:: Present: able to speak in complete sentences, no respiratory distress, decreased breath sounds, crackles - Cardiovascular Exam Cardiac:: Present: S1, S2 - GI Exam GI:: Present: soft - Skin Exam Skin: Present: warm, no rash - Neurological Exam Neurological: Present: alert, awake, normal cognition - Extremities Exam Extremities: Present: no cyanosis, no clubbing, no edema - Psychiatric Exam Psychiatric: Present: normal affect Internal Medicine - CN: Reslt - Labs CBC & Chem 7: 08/15/21 06:43 08/15/21 06:43 Labs: Short CBC 08/14/21 08/15/21 Range/Units 18:45 06:43 WBC 21.1 H* 19.8 H (4.8-10.8) K/mm3 Hgb 16.3 14.3 D (14.1-18.0) g/dL Hct 48.7 43.2 (42.0-52.0) % Plt Count 273 234 (142-424) K/mm3 BMP 08/14/21 08/15/21 18:45 06:43 Sodium 129 L 132 L Potassium 4.2 3.7 Chloride 95 L 99 Carbon Dioxide 24 25 BUN 12 10 Creatinine 0.90 0.70 D Glucose 118 H 107 H Calcium 9.0 8.5 Cardiac Enzymes 08/14/21 08/14/21 08/15/21 Range/Units 18:45 22:15 01:16 Troponin I < 0.01 < 0.01 < 0.01 (0.00-0.034) ng/ml Liver Function 08/14/21 Range/Units 18:45 Total Bilirubin 1.2 (0.2-1.3) mg/dl AST 32 (17-59) U/L ALT 28 (12-78) U/L Alkaline Phosphatase 97 (38-126) U/L Albumin 4.2 (3.5-5.0) g/dl Assessment and Plan (1) Aspiration pneumonia Status: Acute Category: Medical Code(s): J69.0 - Pneumonitis due to inhalation of food and vomit (2) Accidental hydrocarbon ingestion Status: Acute Category
--- NOTE | 2021-08-15 17:45 | PC.NURSE ---
no acute changes since taking over care of this patient, pt is currently on room air with O2 sats 93%, has not complained of SOA or pain
[2021-08-16] VITALS (7 sets, daily range): BP systolic 126–145; BP diastolic 73–81; PULSE 80–117; RESP 16–24; TEMP 36.9–37.9; O2SAT 92–98; BMI 28.5
--- NOTE | 2021-08-16 04:01 | PC.NURSE ---
Shift summary. Pt has been a+o x4 t/o shift. Pt has 1x complaint of aa mild NEWELL accompanied by low grade fever t/o shift. Pt was given acetaminophen per MAR with favorable results. Pt has not showed any s/s SOA and sats have been above 90% on room air. Pt currently resting in bed. Call light within reach. Will continue to monitor.
[2021-08-16 07:15] LABS: Anion Gap 14.5 mEq/L (5-15); Basophils % 0.1 % (0.1-2.0); Blood Urea Nitrogen 8 mg/dl (9-20); Calcium 8.5 mg/dl (8.4-10.2); Carbon Dioxide 24 mmol/L (22.0-30.0); Chloride 99 mmol/L (98-107); Creatinine Clearance Estimated 184 mL/min (50-200); Estimated Glomerular Filt Rate 123 ml/min (>60); GFR (African American) 149 ML/MIN (>60); Glucose 112 mg/dl (74-100); Hematocrit 44.4 % (42.0-52.0); Hemoglobin 14.4 g/dL (14.1-18.0); Lymphocytes # 1.2 K/mm3 (0.7-4.5); Lymphocytes % 6.6 % (10-50); Mean Corpuscular HGB Conc 32.5 g/dL (31.8-35.4); Mean Corpuscular Hemoglobin 31.6 pg (27.0-31.2); Mean Corpuscular Volume 97.2 fl (80-94); Mean Platelet Volume 7.2 fl (7.4-10.4); Monocytes # 1.1 K/mm3 (0.1-1.0); Neutrophils # 15.8 K/mm3 (1.8-7.8); Neutrophils % 87.1 % (37.0-80.0); Platelet Count 244 K/mm3 (142-424); Potassium 3.5 mmoL/L (3.5-5.1); Red Blood Count 4.57 M/mm3 (4.60-6.20); Red Cell Distribution Width 12.2 % (11.5-17.5); Sodium 134 mmol/L (136-145); White Blood Count 18.1 K/mm3 (4.8-10.8)
[2021-08-16 07:27] LABS: MANUAL DIFFERENTIAL MANUAL DIFFERENTIAL (MANUAL DIFF)
--- NOTE | 2021-08-16 07:30 | P.PN_ITS ---
Internal Medicine - PN: Subj *Date: 08/16/21 *Time: 07:30 Interval history: Patient reports back pain and continued left-sided chest and rib pain especially with deep breathing or movements. Cough is productive of a brownish-red sputum Exam Vital signs and Labs for Last 24 Hours: Temp Pulse Resp BP Pulse Ox 98.9 F 109 H 18 139/78 92 L 08/16/21 03:52 08/16/21 03:52 08/16/21 03:52 08/16/21 03:52 08/16/21 03:52 Laboratory Results - last 24 hr 08/15/21 06:43: Hgb 14.3 D, Total Counted 100, Neutrophils % (Manual) 92 H, Lymphocytes % (Manual) 5 L, Monocytes % (Manual) 3, Platelet Estimate Normal 08/16/21 06:51: WBC 18.1 H, RBC 4.57 L, Hgb 14.4, Hct 44.4, MCV 97.2 H, MCH 31.6 H, MCHC 32.5, RDW 12.2, Plt Count 244, MPV 7.2 L, Neut % (Auto) 87.1 H, Lymph % (Auto) 6.6 L, [place] % (Auto) 6.0, Eos % (Auto) 0.0 L, Baso % (Auto) 0.1, Neut # (Auto) 15.8 H, Lymph # (Auto) 1.2, [place] # (Auto) 1.1 H, Eos # (Auto) 0.0, Baso # (Auto) 0.0 08/16/21 06:51: Sodium 134 L, Potassium 3.5, Chloride 99, Carbon Dioxide 24, Anion Gap 14.5, BUN 8 L, Creatinine 0.70, Estimated Creat Clear 184, Estimated GFR 123, Est GFR ( Amer) 149, Glucose 112 H, Calcium 8.5 I & O for Last 24 hours: Intake & Output 08/13/21 08/14/21 08/15/21 08/16/21 11:59 11:59 11:59 11:59 Intake Total 1100 / 1100 120 / 120 Output Total 850 / 850 900 / 900 Balance 250 / 250 -780 / -780 Weight 209 lb 6.391 oz 210 lb 8 oz Narrative: Patient is sitting up on the side of the bed. Lungs have rhonchi in the left base and faint rhonchi on the right. Heart has a regular rate and rhythm. Assessment and Plan (1) Aspiration pneumonia Status: Acute Category: Medical Code(s): J69.0 - Pneumonitis due to inhalation of food and vomit (2) Accidental hydrocarbon ingestion Status: Acute Category: Medical Code(s): T59.891A - Toxic effect of other specified gases, fumes and vapors, accidental (unintentional), initial encounter (3) Rheumatoid arthritis Status: Acute Category: Medical Code(s): M06.9 - Rheumatoid arthritis, unspecified (4) Acute respiratory failure with hypoxia Status: Acute Category: Medical Code(s): J96.01 - Acute respiratory failure with hypoxia (5) Finger fracture, left Status: Acute Qualifiers: Encounter type: initial encounter Finger: thumb Fracture type: open Phalanx: distal Fracture alignment: displaced Qualified Code(s): S62.522B - Displaced fracture of distal phalanx of left thumb, initial encounter for open fracture Category: Medical Code(s): S62.609A - Fracture of unspecified phalanx of unspecified finger, initial encounter for closed fracture (6) Alcohol abuse Status: Chronic Category: Social Hx Code(s): F10.10 - Alcohol abuse, uncomplicated (7) Pneumonitis, aspiration Status: Acute Category: Medical Code(s): J69.0 - Pneumonitis due to inhalation of food and vomit - Assessment and plan all Dx Assessment and Plan for all problems:: Incentive spirometry hourly. Increase level of activity today. Await sputum culture. If patient remains stable over the next 24 hours will discharge home tomorrow
--- NOTE | 2021-08-16 09:28 | XR_ITS ---
PROCEDURE: XR CHEST PORTABLE CLINICAL HISTORY: pnm COMPARISON: CR CXR2V XR chest 2V from 03/10/2018 CR XR CHEST 2V from 11/18/2020 CR XR CHEST PORTABLE from 08/14/[address] CHEST W CON from 08/15/2021 FINDINGS: Dense consolidation noted in the left lower lobe consistent with pneumonia with effusion. The consolidation appears slightly worse compared to the previous exam. Patchy infiltrate is also present in the right lung base not significantly changed. Elevated left hemidiaphragm once again noted. IMPRESSION: Slight worsening left lower lobe pneumonia with effusion with elevated left hemidiaphragm Dictated by: Sourav Marr MD 08/16/2021 10:38 Sourav Marr MD in [place] 08/16/2021 10:38
--- NOTE | 2021-08-16 11:38 | HMH.PULMPN ---
Internal Medicine - PN: Subj *Date: 08/16/21 *Time: 11:38 Interval history: No acute respiratory vents overnight. Patient continued to remain on room air. Complains of no new respiratory symptoms however admits continued cough and productive phlegm. Exam - Constitutional Constitutional:: Present: no acute distress, comfortable - HENMT Exam HENMT: Present: normocephalic, atraumatic - Eye Exam Eyes:: Present: normal appearance both eyes and related structures - Neck Exam Neck:: Present: normal visual inspection - Respiratory Exam Respiratory:: Present: able to speak in complete sentences, no respiratory distress, decreased breath sounds, crackles - Cardiovascular Exam Cardiac:: Present: S1, S2 - GI Exam GI:: Present: soft - Skin Exam Skin: Present: warm, no rash - Neurological Exam Neurological: Present: alert, awake, normal cognition - Extremities Exam Extremities: Present: no cyanosis, no clubbing, no edema - Psychiatric Exam Psychiatric: Present: normal affect Assessment and Plan (1) Aspiration pneumonia Status: Acute Category: Medical Code(s): J69.0 - Pneumonitis due to inhalation of food and vomit (2) Accidental hydrocarbon ingestion Status: Acute Category: Medical Code(s): T59.891A - Toxic effect of other specified gases, fumes and vapors, accidental (unintentional), initial encounter (3) Rheumatoid arthritis Status: Acute Category: Medical Code(s): M06.9 - Rheumatoid arthritis, unspecified (4) Acute respiratory failure with hypoxia Status: Acute Category: Medical Code(s): J96.01 - Acute respiratory failure with hypoxia (5) Finger fracture, left Status: Acute Qualifiers: Encounter type: initial encounter Finger: thumb Fracture type: open Phalanx: distal Fracture alignment: displaced Qualified Code(s): S62.522B - Displaced fracture of distal phalanx of left thumb, initial encounter for open fracture Category: Medical Code(s): S62.609A - Fracture of unspecified phalanx of unspecified finger, initial encounter for closed fracture (6) Alcohol abuse Status: Chronic Category: Social Hx Code(s): F10.10 - Alcohol abuse, uncomplicated (7) Pneumonitis, aspiration Status: Acute Category: Medical Code(s): J69.0 - Pneumonitis due to inhalation of food and vomit - Assessment and plan all Dx Assessment and Plan for all problems:: #Acute hypoxic respiratory failure: #Community-acquired/aspiration pneumonia: #Toxic ingestion: 41-year-old male presented history of rheumatoid arthritis currently on adalimumab (held for the last week after his thumb injury) presented to the hospital with toxic ingestion and found to be needing new oxygen requirements. Chest x-ray and CT scan showed large 3 cm nodular opacity in the left lingula along with dense consolidation in the left lingula along with left lower lobe effusion and adjacent atelectasis. No obvious evidence of airway trauma/mediastinal air noted. Patient has been weaned to room air since yesterday with no worsening respiratory distress. Leukocytosis 18.1. Plan: - Sputum JUAN and serum beta D glucan -Add incentive spirometry -Follow with sputum culture results. Preliminary staining showed gram-positive cocci in pairs and chains -Continue DuoNebs 4 times daily scheduled. -Recommend de-escalating antibiotics to Augmentin pending final sputum culture results. #Thank you for involving pulmonary in this patient care. We will continue to follow. We will follow the patient in pulmonary clinic in 4 to 6 weeks with a repeat CT chest without contrast, full PFT and 6-minute walk test
[2021-08-16 15:57] LABS: Hypochromasia 1+; Lymphocytes % 4 % (10-50); Macrocytosis 1+; Monocytes % 6 % (2-9); Neutrophils % 90 % (42-76); Platelet Estimate Normal; Total Cells Counted 100
--- NOTE | 2021-08-16 18:42 | PC.NURSE ---
Dressing changes completed after pt showered this shift. Vasoline gauze applied to thumb and soft roll to wrap. Rt middle finger and ring finger-no open areas noted, so soft roll applied for protection. CIWA scores have remained at 1 this shift. Pt c/o lower back pain x1, PRN ketorolac administered per JAN. Pt has used IS hourly this shift, IS @ best 1250 cc's. No other acute changes or complaints, will continue to monitor.
[2021-08-17] VITALS: BP 124/89; PULSE 102; RESP 18; TEMP 37.2; O2SAT 95
[2021-08-17 02:05] VITALS: TEMP 38.3
[2021-08-17 03:22] VITALS: BP 134/73; PULSE 107; RESP 20; TEMP 37.1; O2SAT 94
--- NOTE | 2021-08-17 03:31 | PC.NURSE ---
No acute changes t/o night. Pt had x2 fever t/o night, admin meds per MAR with relief. Pt denies any pain. Pt continues to use IS independently. VSS, call light within reach, will continue to monitor.
[2021-08-17 05:00] VITALS: BMI 28.3
[2021-08-17 06:55] LABS: Basophils % 0.1 % (0.1-2.0); Hematocrit 41.9 % (42.0-52.0); Hemoglobin 13.7 g/dL (14.1-18.0); Lymphocytes # 1.9 K/mm3 (0.7-4.5); Lymphocytes % 12.8 % (10-50); Mean Corpuscular HGB Conc 32.8 g/dL (31.8-35.4); Mean Corpuscular Hemoglobin 31.7 pg (27.0-31.2); Mean Corpuscular Volume 96.6 fl (80-94); Mean Platelet Volume 7.1 fl (7.4-10.4); Monocytes # 1.1 K/mm3 (0.1-1.0); Monocytes % 7.4 % (1.7-9.3); Neutrophils # 11.7 K/mm3 (1.8-7.8); Neutrophils % 79.7 % (37.0-80.0); Platelet Count 255 K/mm3 (142-424); Red Blood Count 4.33 M/mm3 (4.60-6.20); Red Cell Distribution Width 12.3 % (11.5-17.5); White Blood Count 14.7 K/mm3 (4.8-10.8)
[2021-08-17 06:59] LABS: Anion Gap 10.3 mEq/L (5-15); Blood Urea Nitrogen 9 mg/dl (9-20); Calcium 8.3 mg/dl (8.4-10.2); Carbon Dioxide 26 mmol/L (22.0-30.0); Chloride 100 mmol/L (98-107); Creatinine Clearance Estimated 183 mL/min (50-200); Estimated Glomerular Filt Rate 123 ml/min (>60); GFR (African American) 149 ML/MIN (>60); Glucose 103 mg/dl (74-100); Potassium 3.3 mmoL/L (3.5-5.1); Sodium 133 mmol/L (136-145)
--- NOTE | 2021-08-17 10:14 | PC.NURSE ---
PT vital signs 08/17/2021 @ 0800 B/P-132/70 P-124 Temp-99.2 orally R-20 RA
--- NOTE | 2021-08-17 12:24 | HMH.DCSUM ---
General - General Admission date:: 08/14/21 Discharge date: 08/17/21 HPI HPI: 41-year-old male with history of rheumatoid arthritis presented to the emergency department yesterday evening with cough, shortness of breath at rest and with exertion. Symptoms have been present for approximately 24 hours. The evening before patient was drunk and accidentally had 2 large gulps of tiki torch fuel. Patient reports shortly after drinking the tiki torch fuel he became nauseous and vomited multiple times. Ultimately this led to aspiration. Patient developed shortness of breath and chest pain on the day of admission. He presented to the emergency department and had findings of bilateral lower lobe pneumonia. Due to the patient's toxic ingestion and highly suspicious story for aspiration he was admitted for supplemental oxygen support, antibiotics, IV fluids. Patient denies nausea or further vomiting. He denies abdominal pain. He did have at least one episode of diarrhea. Primarily he reports shortness of breath both at rest and with exertion. Patient has had low-grade fevers since admission. Hospital Course Hospital Course: Patient was admitted and placed on antibioitcs for aspiration pneumonia/pneumonitis. Surgery was consulted and UGI was ordered which did not reveal any esophageal perforation. PUlmonology was consulted and follow the patient while an inpatient. At discharge outpatient Pulm f/u was arranged. Patient was weaned to room air withing 24 hours of admission. He had cough productive of reddish-brown sputum. He had left sided chest pain from pneumonitis/pleural effusion. On 08/17 he was stable on room oxygen with decreasing WBC and was discharged home. Patient was monitored for ETOH withdrawal symptoms during hospitalization. Objective Vital signs: Temp Pulse Resp BP Pulse Ox 98.7 F 107 H 20 134/73 94 L 08/17/21 03:22 08/17/21 03:22 08/17/21 03:22 08/17/21 03:22 08/17/21 03:22 no acute distress - *Routine Respiratory Exam Present: CTA bilaterally, distant breath sounds (left base) - *Routine Cardiovascular Exam Present: RRR, Normal S1, Normal S2 - *Routine Abdominal Exam Present: soft Results Labs on day of discharge: Labs from last 24 hours 08/17/21 08/17/21 08/16/21 06:28 06:28 06:51 WBC 14.7 H RBC 4.33 L Hgb 13.7 L Hct 41.9 L MCV 96.6 H MCH 31.7 H MCHC 32.8 RDW 12.3 Plt Count 255 MPV 7.1 L Neut % (Auto) 79.7 Lymph % (Auto) 12.8 [place] % (Auto) 7.4 Eos % (Auto) 0.0 L Baso % (Auto) 0.1 Neut # (Auto) 11.7 H Lymph # (Auto) 1.9 [place] # (Auto) 1.1 H Eos # (Auto) 0.0 Baso # (Auto) 0.0 Total Counted 100 Neutrophils % (Manual) 90 H Lymphocytes % (Manual) 4 L Monocytes % (Manual) 6 Platelet Estimate Normal Hypochromasia 1+ Macrocytosis 1+ Sodium 133 L Potassium 3.3 L Chloride 100 Carbon Dioxide 26 Anion Gap 10.3 BUN 9 Creatinine 0.70 Estimated Creat Clear 183 Estimated GFR 123 Est GFR ( Amer) 149 Glucose 103 H Calcium 8.3 L Preliminary micro results at discharge 08/15/21 08:20 Sputum Culture - Preliminary Sputum - Expectorated Sputum DS: Diagnosis - Discharge Diagnosis (1) Aspiration pneumonia Status: Acute (2) Accidental hydrocarbon ingestion Status: Acute (3) Rheumatoid arthritis Status: Acute (4) Acute respiratory failure with hypoxia Status: Acute (5) Finger fracture, left Status: Acute (6) Alcohol abuse Status: Chronic (7) Pneumonitis, aspiration Status: Acute Discharge Plan - Patient Discharge Instructions ACTIVITY: Continue current activity DIET: continue same diet Patient Instructions: DI for Aspiration Pneumonia, DI for Respiratory Failure, DI for Hypoxia, Respiratory Failure - Follow up Plan Follow up with: Barbara Coronado MD [Physician] - 10/02/21 10:30 am (pft an
[2021-08-19 11:11] LABS: Fungitell(Beta D-Glucan) Serum <31 pg/mL (<80)
== END 2021-08-17 09:24 | disposition home or self-care (01) | DRG 177 ==
LOC: ER 19:50 → 2ND 21:14
PROVIDERS: Internal Medicine Pulmonary Disease; Admitting Provider Internal Medicine Adolescent Medicine; Emergency Provider Family Medicine; PCP Nurse Practitioner Family; Visit Provider Family Medicine
DX: J69.0 Pneumonitis due to inhalation of food and vomit; J96.01 Acute respiratory failure with hypoxia; T59.891A Toxic effect of other specified gases, fumes and vapors, accidental (unintentional), initial encounter; Z20.822 Contact with and (suspected) exposure to COVID-19; K21.9 Gastro-esophageal reflux disease without esophagitis; F17.210 Nicotine dependence, cigarettes, uncomplicated; F10.10 Alcohol abuse, uncomplicated; S62.522A Displaced fracture of distal phalanx of left thumb, initial encounter for closed fracture; X58.XXXA Exposure to other specified factors, initial encounter
CPT/HCPCS: 36415; 71045; 71260; 74240; 80048; 80053; 84484; 85007; 85025; 87070; 87205; 87449; 93005; 94640; 94760; 96365; 96367; 96375; 99284; C9803; J1956; Q9967; U0003; U0005

== ENCOUNTER → 2021-08-21 14:27 | Outpatient (CLI) | payer BC, SELFPAY ==
--- NOTE | 2021-08-21 14:34 | XR_ITS ---
PROCEDURE: XR CHEST 2V CLINICAL HISTORY: ASPIRATION PNEUMONIA COMPARISON: CR XR CHEST 2V from 11/18/2020 CR XR CHEST PORTABLE from 08/14/[address] CHEST W CON from 08/15/2021 CR XR CHEST PORTABLE from 08/16/2021 FINDINGS: The cardiomediastinal silhouette and pulmonary vascularity are within normal limits. Left lower lobe pneumonia once again noted with some improvement in the consolidation in the left lung base with small pleural effusion. The remaining lungs are clear. No acute bony abnormalities. IMPRESSION: Persistent but improving left lower lobe pneumonia with small effusion. Dictated by: Sourav Marr MD 08/21/2021 15:56 Sourav Marr MD in [place] 08/21/2021 15:56
== END ==
PROVIDERS: PCP Family Medicine; Visit Provider Family Medicine
DX: J69.0 Pneumonitis due to inhalation of food and vomit (principal)
CPT/HCPCS: 71046

== ENCOUNTER → 2021-08-29 10:19 | Outpatient (CLI) | payer BC, SELFPAY ==
--- NOTE | 2021-08-29 10:24 | XR_ITS ---
PROCEDURE: XR CHEST 2V CLINICAL HISTORY: ASPIRATION PNUMONIA DUE TO INHALATION OF VOMITUS COMPARISON: CR XR CHEST PORTABLE from 08/14/[address] CHEST W CON from 08/15/2021 CR XR CHEST PORTABLE from 08/16/2021 CR XR CHEST 2V from 08/21/2021 FINDINGS: The cardiomediastinal silhouette and pulmonary vascularity are within normal limits. There remains dense consolidation of the lingula overall not significantly changed. There is a small left pleural effusion unchanged. No acute bony abnormalities. IMPRESSION: Overall no significant change in the dense consolidation consistent with pneumonia with small parapneumonic effusion Dictated by: Sourav Marr MD 08/29/2021 11:48 Sourav Marr MD in [place] 08/29/2021 11:48
== END ==
PROVIDERS: PCP Family Medicine; Visit Provider Family Medicine
DX: J69.0 Pneumonitis due to inhalation of food and vomit (principal); J18.9 Pneumonia, unspecified organism; J91.8 Pleural effusion in other conditions classified elsewhere
CPT/HCPCS: 71046

== ENCOUNTER → 2021-09-04 09:31 | Outpatient (CLI) | payer BC, SELFPAY ==
--- NOTE | 2021-09-04 09:41 | XR_ITS ---
PROCEDURE: XR CHEST 2V CLINICAL HISTORY: ASPIRATION PNEUMONIA,PLEURAL EFFUSION COMPARISON: CT CT CHEST W CON from 08/15/2021 CR XR CHEST PORTABLE from 08/16/2021 CR XR CHEST 2V from 08/21/2021 CR XR CHEST 2V from 08/29/2021 FINDINGS: The cardiomediastinal silhouette and pulmonary vascularity are within normal limits. Persistent dense consolidation within the lingula with small left-sided effusion No acute bony abnormalities. IMPRESSION: No change lingula pneumonia with small effusion. Dictated by: Sourav Marr MD 09/04/2021 10:28 Sourav Marr MD in [place] 09/04/2021 10:28
== END ==
PROVIDERS: PCP Family Medicine; Visit Provider Family Medicine
DX: J69.0 Pneumonitis due to inhalation of food and vomit (principal); J18.9 Pneumonia, unspecified organism; J91.8 Pleural effusion in other conditions classified elsewhere
CPT/HCPCS: 71046

== ENCOUNTER → 2021-09-11 09:36 | Outpatient (CLI) | payer BC, SELFPAY ==
--- NOTE | 2021-09-11 09:44 | US_ITS ---
PROCEDURE: US THORACENTESIS CLINICAL INDICATION: PNEUMONIA,UNSPECIFIED; PLEURAL EFFUSION IN OTHER CONDTIONS Left pleural effusion with pneumonia COMPARISON: No exams were available for comparison TECHNIQUE: Pre thoracentesis ultrasound demonstrated a small left pleural effusion with consolidated lung in the left lower lobe. Informed consent was obtain prior to procedure. After appropriate Time out, under aseptic conditions and local anesthesia with 1% buffered lidocaine using sonographic guidance a 6 [place] [id number]-[id number] catheter was inserted into left posterior hemithorax inferiorly within the pleural space. Approximately 460 mL volume of serous fluid was drained. The patient tolerated the procedure well and left the radiology suite in stable condition. Post thoracentesis chest x-ray was unremarkable for pneumothorax immediately and at 3 hours. FINDINGS: Left pleural effusion IMPRESSION: Successful left-sided sonographic guided thoracentesis without complication. Dictated by: Sourav Marr MD 09/12/2021 08:22 Sourav Marr MD in [place] 09/12/2021 08:22
[2021-09-11 10:37] VITALS: BP 108/65; PULSE 68; RESP 18; TEMP 36.2; O2SAT 97; BMI 27.9
--- NOTE | 2021-09-11 11:48 | XR_ITS ---
PROCEDURE: XR CHEST 2V CLINICAL HISTORY: Follow-up thoracentesis, left-sided pleural effusion with pneumonia COMPARISON: CT CT CHEST W CON from 08/15/2021 CR XR CHEST 2V from 08/21/2021 CR XR CHEST 2V from 08/29/2021 CR XR CHEST 2V from 09/04/2021 FINDINGS: The cardiomediastinal silhouette and pulmonary vascularity are within normal limits. Left lower lobe pneumonia is once again noted. There is decrease in size in left pleural effusion and no obvious pneumothorax. A small effusion persist. IMPRESSION: No evidence of pneumothorax. Persistent left lower lobe consolidation/pneumonia with trace left effusion. Dictated by: Sourav Marr MD 09/11/2021 12:03 Sourav Marr MD in [place] 09/11/2021 12:03
[2021-09-11 13:22] LABS: Alanine Aminotransferase 28 U/L (12-78); Albumin Level 3.5 g/dl (3.5-5.0); Albumin/Globulin Ratio 1.2 (1.1-1.8); Alkaline Phosphatase 79 U/L (38-126); Anion Gap 7.8 mEq/L (5-15); Aspartate Amino Transferase 30 U/L (17-59); Bilirubin,Total 0.3 mg/dl (0.2-1.3); Blood Urea Nitrogen 13 mg/dl (9-20); Calcium 8.8 mg/dl (8.4-10.2); Carbon Dioxide 31 mmol/L (22.0-30.0); Chloride 102 mmol/L (98-107); Creatinine Clearance Estimated 210 mL/min (50-200); Estimated Glomerular Filt Rate 147 ml/min (>60); GFR (African American) 178 ML/MIN (>60); Globulin 2.9 g/dL (1.3-3.2); Glucose 112 mg/dl (74-100); Lactate Dehydrogenase 146 U/L (313-618); Potassium 3.8 mmoL/L (3.5-5.1); Sodium 137 mmol/L (136-145); Total Protein,Serum 6.4 g/dl (6.3-8.2)
[2021-09-11 13:31] LABS: Appearance,Body Fld. Cloudy; Source, Body Fld. Thoracentesis Fluid
[2021-09-11 13:32] LABS: Volume,Body Fld. 43 mL
--- NOTE | 2021-09-11 15:00 | XR_ITS ---
PROCEDURE: XR CHEST 2V CLINICAL HISTORY: Follow-up thoracentesis COMPARISON: CT CT CHEST W CON from 08/15/2021 CR XR CHEST 2V from 08/29/2021 CR XR CHEST 2V from 09/04/2021 CR XR CHEST 2V from 09/11/2021 FINDINGS: The cardiomediastinal silhouette and pulmonary vascularity are within normal limits. There remains consolidation in the lingula with small left effusion. Along the superior aspect of the consolidation there is a nodular density measuring approximately 3 cm which may correspond to the area noted on the previous CT scan of 08/15/2021. Consider follow-up chest CT with contrast once the pneumonia resolves to further evaluate this abnormality. Neoplasm is not excluded. No evidence of pneumothorax. IMPRESSION: No evidence of pneumothorax status post ultrasound-guided thoracentesis. Persistent consolidation within the lingula with small left effusion with nodularity noted in the left upper lobe for which follow-up is suggested. Dictated by: Sourav Marr MD 09/11/2021 14:42 Sourav Marr MD in [place] 09/11/2021 14:42
[2021-09-11 15:13] LABS: RBC,Body Fluid < 10 cells/uL (< 10 X 10^3); TNC,Body Fluid 6332 cells/uL (< 1000)
[2021-09-11 15:14] LABS: Mononuclear WBCs,Body Fluid 84 %; Polynuclear WBC,Body Fluid 16 %
[2021-09-12 13:17] LABS: Albumin, Body Fluid 2.9 g/dL (Not Estab.); Glucose, Body Fluid 35 mg/dL (.); LD, Body Fluid 862 IU/L (.); Protein, Body Fluid 4.4 g/dL (.)
[2021-09-13 13:10] LABS: pH, Body Fluid 7.6 (Not Estab.)
== END ==
PROVIDERS: PCP Nurse Practitioner Family; Visit Provider Family Medicine
DX: J18.9 Pneumonia, unspecified organism (principal); J91.8 Pleural effusion in other conditions classified elsewhere
CPT/HCPCS: 32555; 71046; 80053; 82042; 82945; 83615; 83986; 84155; 87070; 87205; 89051

== ENCOUNTER → 2021-09-19 16:26 | Outpatient (CLI) | payer BC, SELFPAY ==
--- NOTE | 2021-09-19 16:28 | XR_ITS ---
PROCEDURE: XR CHEST 2V CLINICAL HISTORY: PNEUMONIA, UNSPECIFIED ORGANISM COMPARISON: CT CT CHEST W CON from 08/15/2021 CR XR CHEST 2V from 09/04/2021 CR XR CHEST 2V from 09/11/2021 CR XR CHEST 2V from 09/11/2021 FINDINGS: The cardiomediastinal silhouette and pulmonary vascularity are within normal limits. There has been some improvement in the pneumonia in the lingula. There remains an area of rounded opacity within the left upper lobe which may be slightly smaller. Small left pleural effusion is once again noted and appears slightly larger. No acute bony abnormalities. IMPRESSION: Persistent but improving pneumonia within the lingula Small left pleural effusion slightly larger Persistent rounded opacity within the lingula which appears slightly smaller and could be due to an area of atelectatic change or pneumonia. Recommend continued follow-up to clearing as a pulmonary nodule is not excluded. Dictated by: Sourav Marr MD 09/20/2021 07:50 Sourav Marr MD in [place] 09/20/2021 07:50
== END ==
PROVIDERS: PCP Family Medicine; Visit Provider Family Medicine
DX: J18.9 Pneumonia, unspecified organism (principal)
CPT/HCPCS: 71046

== ENCOUNTER → 2021-09-27 13:00 | Outpatient (CLI) | payer BC, SELFPAY ==
[2021-09-27 13:55] VITALS: PULSE 93; PULSE 97
--- NOTE | 2021-09-27 14:26 | CT_ITS ---
PROCEDURE: CT CHEST WO CON CLINICAL INDICATION: pulmonary nodule COMPARISON: CT CT CHEST W CON from 08/15/2021 CR XR CHEST 2V from 09/19/2021 TECHNIQUE: Axial images obtained with sagittal and coronal reformats. All CT scans at the facility use one or more dose reduction, viz: automated exposure control, ma/kV adjustment per patient size (including targeted exams where dose is matched to indication, i.e. head), or iterative reconstruction technique. FINDINGS: Airways are patent. There is no bronchiectasis. There is trace residual left pleural fluid. There is peribronchial cuffing involving the airways in the left upper lobe. Since the prior study there has been interval improvement in the ground-glass opacity and consolidation involving the left upper lobe although there is residual small amount of consolidation which is likely predominantly rounded atelectasis. The peribronchial cuffing does suggest ongoing airway infection or inflammation however. There is also cystic change abutting the airways suggesting possible prior necrotizing pneumonia. There are no definite pulmonary nodules. There are abundant mediastinal lymph nodes, 1 of which is enlarged by CT criteria 14 millimeters however stable since prior study there are abundant axillary lymph nodes one of which in the right axilla is at the upper limit of normal in size. Visualized abdominal contents are unremarkable. IMPRESSION: Ongoing improvement in left upper lobe pneumonia, with smaller left pleural effusion and no definite pulmonary nodules, although there is persistent peribronchial cuffing suggesting ongoing airway infection or inflammation as well as pulmonary cystic change in the region of the prior pneumonia suggesting a possible prior necrotizing component. Dictated by: Madisyn Kong MD 09/27/2021 15:13 Madisyn Kong MD in [place] 09/27/2021 15:13
== END ==
PROVIDERS: PCP Family Medicine; Visit Provider Internal Medicine Pulmonary Disease
DX: J69.0 Pneumonitis due to inhalation of food and vomit (principal)
CPT/HCPCS: 71250; 94060; 94618; 94640; 94727; 94729

== ENCOUNTER → 2021-10-02 11:29 | Outpatient (CLI) | payer BC, SELFPAY ==
--- NOTE | 2021-10-02 11:32 | XR_ITS ---
PROCEDURE: XR CHEST 2V CLINICAL HISTORY: Pain COMPARISON: CR XR CHEST 2V from 09/11/2021 CR XR CHEST 2V from 09/11/2021 CR XR CHEST 2V from 09/19/[address] CHEST WO CON from 09/27/2021 FINDINGS: The cardiomediastinal silhouette and pulmonary vascularity are within normal limits. There remains some consolidation within the lingula with a small left pleural effusion. The focal density in the lingula appears somewhat improved. The right lung is clear. No acute bony abnormalities. IMPRESSION: Persistent but slightly improved consolidation within the lingula with persistent small left pleural effusion Dictated by: Sourav Marr MD 10/02/2021 15:31 Sourav Marr MD in [place] 10/02/2021 15:31
== END ==
PROVIDERS: PCP Family Medicine; Visit Provider Internal Medicine Pulmonary Disease
DX: Z87.09 Personal history of other diseases of the respiratory system (principal)
CPT/HCPCS: 71046

== ENCOUNTER 2022-07-18 14:12 | Emergency (ER) | payer BC, SELFPAY ==
--- NOTE | 2022-07-18 14:27 | HMH.EDUTC ---
[facility] [place] Clinical Impression: Exposure to COVID-19 virus, Viral syndrome Pharyngitis Qualifiers: Pharyngitis/tonsillitis etiology: unspecified etiology Qualified Code(s): J02.9 - Acute pharyngitis, unspecified Disposition: Home, Self-Care Condition on Discharge: Good Instructions: DI for Pharyngitis/Tonsillopharyngitis -- Adult, DI for COVID-19 (Suspected or Confirmed ), Preventing the Spread of Coronavirus Discharge Instructions Additional Instructions: Drink plenty of fluids. Take tylenol or ibuprofen for pain or fever. Take the medications as directed. Follow up with your regular doctor. GO TO THE ER FOR ANY WORSENING SYMPTOMS Quarantine until you know the results of your covid-19 test. Notify your school or workplace of your results and follow their instructions regarding return to work/school. Prescriptions: Benzonatate [Benzonatate 100mg cap] 100 mg PO TIDP PRN #30 cap PRN Reason: Cough Transmission Status: Received by [facility] Azithromycin [Z-Fitz 250mg Tab*] 250 mg PO UD DOSE PK #6 tab Transmission Status: Received by [facility] Referrals: Lashae Murguia APRN [Primary Care Provider] - Forms: Work/School Release Time of Disposition: 15:02 Medical Decision Making - Medical Records Medical records reviewed: No: I reviewed the patient's medical records. - Jorge Alberto Inquiry Pt receiving controlled substance: No Vital Signs: 07/18/22 14:29 07/18/22 15:17 Temperature 97.9 F 97.9 F Temperature Source Oral Pulse Rate 89 Pulse Rate [Left] 89 Respiratory Rate 16 16 Blood Pressure 139/96 H Blood Pressure [Right Arm] 139/96 H Blood Pressure Mean [Right Arm] 110 02 Sat by Pulse Oximetry 97 - Lab Data Lab results reviewed: Yes: I reviewed the patient's lab results. [facility] [place] - General Stated complaint: sore throat Time Seen by Provider: 07/18/22 14:27 - History of Present Illness Provider Complaint: He states that for the past 2 days he has had a sore throat and he has had sinus congestion. His mother currently has covid-19 and he has been around his mother recently. - Related Data Home Medications Medication Instructions Recorded Confirmed Meloxicam 7.5 mg PO DAILY 09/11/21 10/09/21 abatacept (with maltose) 250 mg IV Q4W each 10/02/21 10/09/21 intravenous solution amoxicillin 875 mg-potassium 1 tab PO BID 10/02/21 10/09/21 clavulanate 125 mg tablet omeprazole 40 mg capsule,delayed 40 mg PO DAILY 10/02/21 10/09/21 release Previous Rx's Medication Instructions Recorded ibuprofen 600 mg tablet 600 mg PO Q8H PRN #20 tab 10/02/21 Azithromycin [Z-Fitz 250mg Tab*] 250 mg PO UD DOSE PK #6 tab 07/18/22 Benzonatate [Benzonatate 100mg 100 mg PO TIDP PRN #30 cap 07/18/22 cap] Allergies Allergy/AdvReac Type Severity Reaction Status Date / Time No Known Allergies Allergy Verified 07/18/22 14:35 [facility] History - Hepatitis A Screen Attestation statement:: This patient has been screened for Hepatitis A risk factors. I have reviewed the patient's past medical history: Yes Medical History: Reports:: Gastroesophageal Reflux Disease(GERD) Denies:: Cancer, Chronic Obstructive Pulmonary Disease (COPD), Diabetes Mellitus Type 1, Diabetes Mellitus Type 2, MRSA, Seizures Other Medical History: Reports: Arthritis, Other. Denies: Blood Transfusion Reaction Comment: Cardiac problems Laterality Cases: Bilateral: Myringotomy (Ear Tubes), Tonsillectomy Other Surgeries: Yes: No Previous Surgery, Other Amputation: No Fractures: No Comment: adenoidectomy. lymph nodes removal - Social History Smoking Status: Former smoker Tobacco Type: cigarettes # Packs/Day (cigarettes): 2 #Yrs smoked (if former smoker): 30 Alcohol Intake: former Alcohol Intake Frequency:: 3 or more drinks per day Substance Use Type: denies use Occupational Status: employed Housing: house Family Hx:: Hypertension Comment: Arthritis ROS Obtained: Yes
[2022-07-18 14:29] VITALS: BP 139/96; PULSE 89; RESP 16; TEMP 36.6; O2SAT 97; BMI 33.2
[2022-07-18 15:17] VITALS: BP 139/96; PULSE 89; RESP 16; TEMP 36.6
== END 2022-07-18 15:17 | disposition home or self-care (01) ==
PROVIDERS: Emergency Provider Nurse Practitioner Family; PCP Nurse Practitioner Family
DX: J02.9 Acute pharyngitis, unspecified; K21.9 Gastro-esophageal reflux disease without esophagitis; M19.90 Unspecified osteoarthritis, unspecified site; Z79.1 Long term (current) use of non-steroidal anti-inflammatories (NSAID); Z79.899 Other long term (current) drug therapy; Z87.81 Personal history of (healed) traumatic fracture
CPT/HCPCS: 99213; C9803; G0463; U0003; U0005

== ENCOUNTER → 2022-12-19 10:09 | Outpatient (CLI) | payer BC, SELFPAY ==
--- NOTE | 2022-12-19 10:16 | XR_ITS ---
FINAL REPORT CLINICAL HISTORY: NUMBNESS IN L LEG FINDINGS: AP, lateral, and oblique views of the lumbar spine were obtained. There is no acute fracture or acute malalignment. Vertebral body height is preserved. There is mild degenerative disease at L5-S1. No acute paraspinal abnormality is identified. IMPRESSION: 1. No acute osseous abnormalities lumbar spine. 2. Mild degenerative disease at L5-S1. Reviewed, Interpreted and Dictated by Ekaterina Noyola MD Transcribed by Inez Horn Authenticated and [facility]
--- NOTE | 2022-12-19 10:16 | XR_ITS ---
FINAL REPORT CLINICAL HISTORY: NUMBNESS IN L LEG FINDINGS: AP and lateral views of the sacrum and coccyx were obtained. There is no prior exam for comparison. There is no acute fracture or other acute osseous abnormality. The SI joints are symmetric bilaterally. The sacrococcygeal articulation appears within normal limits. No acute soft tissue abnormality is present. IMPRESSION: No acute abnormality of the sacrum or coccyx. Reviewed, Interpreted and Dictated by Ekaterina Noyola MD Transcribed by Inez Horn Authenticated and [facility]
== END ==
PROVIDERS: PCP Family Medicine; Visit Provider Family Medicine
DX: M54.50 Low back pain, unspecified (principal); M79.605 Pain in left leg; R20.0 Anesthesia of skin; R20.2 Paresthesia of skin
CPT/HCPCS: 72110; 72220

== ENCOUNTER 2023-03-20 16:51 | Emergency (ER) | payer BC, SELFPAY ==
[2023-03-20 17:20] VITALS: BP 149/98; PULSE 86; RESP 18; TEMP 36.8; O2SAT 100; BMI 29.5
--- NOTE | 2023-03-20 18:01 | EXP.UTC ---
Discharge Plan Disposition Patient Disposition: Home, Self-Care Condition: Good Prescriptions Prescriptions: No Action omeprazole 40 mg capsule,delayed release(DR/EC) 40 mg PO DAILY amoxicillin-pot clavulanate [Augmentin] 875-125 mg tablet 1 tab PO BID Orencia (with maltose) 250 mg recon soln IV Q4W ibuprofen 600 mg tablet 600 mg PO Q8H PRN (Reason: pain) Qty: 20 0RF azithromycin 250 MG tablet 250 mg PO UD DOSE PK Qty: 6 0RF Rx Instructions: Take two (2) tablets today, then one (1) tablet days #2 thru #5 benzonatate 100 MG capsule 100 mg PO TIDP PRN (Reason: Cough) Qty: 30 0RF meloxicam 7.5 MG tablet 7.5 mg PO DAILY Referrals Follow up/Referrals: Shadi Gutierrez MD [Primary Care Provider] - See instructions Activity Restrictions/Add. Instructions Additional Instructions/Restrictions: Suture instructions: ?You have required stitches today. Please read the following instructions so you know how to care for them: ?1. Keep wound area dry for the first 24 hours. 2?? May clean gently with mild soap and water, after 48 hours to prevent crusting over suture knots. 3. You may shower if your provider gives permission but do not take a bath until the skin is healed.. 4. Never leave a wet dressing or Band-Aid on your stitches as this allows bacteria to reach the area and may cause infection. Band-aids can cause the wound to sweat and not recommended to wear for long periods of time Watch for signs of infection: ? Increasing redness, tenderness or warmth around the suture site ? Unusual swelling around the site ? Appearance of pus around each suture or any red streaks ? Fever If you develop any of the above signs or symptoms of infection, Follow up with Family Physician immediately 5. Suture removal in _8-10___days 6. Return to [facility] or follow up with family doctor for removal. This can be done by any medical provider dur?ing regular hours on Saturday through Saturday, by appointment. Clinical Impressions Clinical Impression: Laceration Stand Alone Forms Stand Alone Forms: Work/School Release Instructions Patient Instructions: DI for Laceration Repair Discharge ED Provider: Candice Ervin [facility] [place] HPI General Stated complaint: AO04/19@1545 LT middle finger lac Mode of Arrival: Ambulatory Source of Information: Patient Limitations: No Limitations Time Seen by Provider: 03/20/23 18:01 Description of Symptoms (Recalled from Triage Doc. by RN): PATIENT C/O LACERATION TO LEFT MIDDLE FINGER AFTER CUTTING IT ON A PIECE OF STEEL HEENT Symptoms (Recalled from RN notes): No Resp Symptoms (Recalled from RN notes): No Skin Symptoms (Recalled from RN notes): Yes MS Symptoms (Recalled from RN notes): No Functional Status (Recalled from RN notes): WNL History of Present Illness Provider Complaint: Patient states that he was handling a piece of steel and it had sharp edges and it cut him on his left middle finger States that he noticed it looked like it may need stiches so he came in Related Data Home Medications Medication Instructions Recorded Confirmed meloxicam 7.5 mg tablet 7.5 mg PO DAILY Arthritis 09/11/21 10/09/21 abatacept (with maltose) 250 mg IV Q4W 10/02/21 10/09/21 intravenous solution (Orencia (with maltose)) amoxicillin 875 mg-potassium 1 tab PO BID 10/02/21 10/09/21 clavulanate 125 mg tablet (Augmentin) omeprazole 40 mg capsule,delayed 40 mg PO DAILY 10/02/21 10/09/21 release Previous Rx's Medication Instructions Recorded ibuprofen 600 mg tablet 600 mg PO Q8H PRN pain #20 tabs 10/02/21 azithromycin 250 mg tablet 250 mg PO UD DOSE PK #6 tabs 07/18/22 benzonatate 100 mg capsule 100 mg PO TIDP PRN Cough #30 caps 07/18/22 Allergies Allergy/AdvReac Type Severity Reaction Status Date / Time No Known Allergies Allergy Verified 07/18/22 14:35 Worker's Comp Is this a Worker's Comp case?: No [facility] Disclaimer: The information contained in thi
[2023-03-20 18:30] VITALS: BP 149/98; PULSE 86; RESP 18; TEMP 36.8; O2SAT 100
== END 2023-03-20 18:33 | disposition home or self-care (01) ==
PROVIDERS: Emergency Provider Nurse Practitioner; PCP Family Medicine
DX: S61.213A Laceration without foreign body of left middle finger without damage to nail, initial encounter (principal); Z87.891 Personal history of nicotine dependence; W26.8XXA Contact with other sharp object(s), not elsewhere classified, initial encounter
CPT/HCPCS: 12001; 99213; G0463

== ENCOUNTER → 2023-07-08 10:34 | Outpatient (CLI) | payer BC, SELFPAY ==
--- NOTE | 2023-07-08 10:45 | XR_ITS ---
FINAL REPORT CLINICAL HISTORY: SOB, cough, smoker FINDINGS: TWO-VIEW CHEST The heart size is normal. The mediastinum is normal. There are left lung opacities, may represent atelectasis or pneumonia. There is no pneumothorax. IMPRESSION: Left lung atelectasis versus pneumonia. Reviewed, Interpreted and Dictated by Gume Saldivar III, MD Transcribed by Stephanie Narayanan Authenticated and . [facility]
== END ==
PROVIDERS: PCP Family Medicine; Visit Provider Nurse Practitioner Family
DX: R06.02 Shortness of breath (principal)
CPT/HCPCS: 71046

== ENCOUNTER 2024-07-07 11:50 | Outpatient (CLI) | payer BC, SELFPAY ==
--- OUTSIDE RECORDS SUMMARY | 2024-07-07 11:55 | XMS_ITS | Clinical Summary ---
Author Organization [facility] Address [address] [place] [address] Phone Care Team Providers Care Save All Operator Name Role Phone Benedicto Cooney MD [phone] Conditions or Problems Problem Name Problem Code Onset Date Status Entry Date Provider Comment Standard Description Annotate Marijuana use 95767492 (SNOMED CT) 06/14 Active 06/14 Benedicto Cooney MD Cannabis abuse Steatohepatit is 824660749 (SNOMED CT) 06/14 Active 06/14 Benedicto Cooney MD Steatohepatitis Latent tuberculosis 579053083 (SNOMED CT) 06/14 Active 06/14 Benedicto Cooney MD Nonspecific tuberculin test reaction Nicotine dependence, cigarettes F17.210 (ICD-10-CM ) 06/12 Active 06/12 Blaire Caldera Nicotine dependence, cigarettes, uncomplicated Alcohol abuse 49720983 (SNOMED CT) 06/12 Active 06/12 Blaire Caldera Alcohol abuse Rheumatoid arthritis with rheumatoid factor of left hip 649972769 (SNOMED CT) 06/12 Active 06/12 Blaire Caldera Seropositive rheumatoid arthritis + QuantiFERON GOLD-TB skin test w/o active TB R76.12 (ICD-10-CM ) 06/12 Active 06/12 Blaire Caldera Nonspecific reaction to cell mediated immunity measurement of gamma interferon antigen response without active tuberculosis Medications Medication Instructions Start Date Stop Date Generic Name NDC Provider OMEPRAZOLE 40 MG CPDR Take 1 Take 1 capsule by oral route every day before a meal omeprazole 97598601542 Francois Katerin PREDNISONE 5 MG TABS Take 2 tablet by oral route every day for one week, then take one tablet daily prednisone [id number] Francois Katerin ORENCIA 250 MG SOLR Administer orencia 750mg IV week 0, 2, 4 then every 4 weeks abatacept (with maltose) [id number] Francois Katerin Mobic 15 mg tablet Take 1 tablet by mouth once daily meloxicam 54561620296 Francois [place] Medications Administered No information available. Allergies, Adverse Reactions, Alerts No information available. Results Date Name Value Unit Range Flag Description Office Visit: Rm 5- New pt MEDS REVIEW Done Documenta tion of current medications (procedure) ORALTOBACUSE Never Tobacco smoking status CIGARET SMKG yes Tobacco smoking status SMOK STATUS Current every day smoker Tobacco smoking status Lab Report: COMPREHENSIVE ME TABOLIC PANEL, CBC (INCLUDES DIFF/PLT), HEPA ... ZZ-GE-unk <0.00 IU/mL N GE use only - for [employer] import when terms are not otherwise specified HEPATITSCCOM 0.22 <1.00 N hepatiti s C comment HEP C AB NON-REACTIVE NON-REACT SHERYL N Hepatitis C virus Ab [Presence] in Serum ANTI-HAV NON-REACTIVE NON-REACT SHERYL N Hepatitis A virus Ab [Presence] in Serum ANTI-HBC NON-REACTIVE NON-REACT SHERYL N Hepatitis B virus core IgG+IgM Ab [Presence] in Serum or Plasma by Immunoassay ANTI-HBS NON-REACTIVE NON-REACT SHERYL N Hepatitis B virus surface Ab [Presence] in Serum HBSAG NON-REACTIVE NON-REACT SHERYL N Hepatitis B virus surface Ag [Units/volume] in Serum BASOPHIL % 0.6 % N Basophils/ 100 leukocytes in Blood by Manual count EOSINOPHIL % 0.6 % N Eosinoph ils/100 leukocytes in Blood by Manual count MONOCYTE % 6.9 % N Monocytes/ 100 leukocytes in Blood by Automated count LYMPHS % 12.5 % N Lymphocytes/ 100 leukocytes in Blood by Automated count PMN % 79.4 % N Neutrophils/1 00 leukocytes in Blood by Automated count BASO# 62 cells/uL 0-200 N Basophils [#/volume] in Blood EOS ABSLT 62 CELLS/UL 10*3/uL 15-500 N Eosinop hils [#/volume] in Blood MONOSCT AUTO 718 CELLS/UL 10*3/uL 200-950 N Mon ocytes [#/volume] in Blood by Automated count LYMPHCT AUTO 1300 CELLS/UL 10*3/mm3 850-3900 N Lymphocytes [#/volume] in Blood by Automated count ABS NEUTROPH 8258 CELLS/UL 10*3/uL 9350-0024 H Neutrophils [#/volume] in Blood MPV 8.9 fL 7.5-12.5 N Platelet ivan n volume [Entitic volume] in Blood by Abhilash PLATELETS 283 THOUSAND/UL 10*3/mm3 140-400 N Platelets [#/volume] in Blood by Automated count RDW_ 13.1 11.0-15.0 N RDW, no uni ts MCHC 33.7 G/DL 32.0-36.0 N MCHC [Mass/ volume] by Automated count MCH 31.6 pg 27.0-33.0 N MCH [Entiti c mass] by Automated count MCV 93.7 fL 80.0-100. 0 N MCV [Entitic volume] by Automated count HCT 50.7 % 38.5-50.0 H Hematocrit [Volume Fraction] of Blood by Automated count HGB 17.1 g/dL 13.2-17.1 N Hemoglobin [Mass/volume] in Blood RBC 5.41 MILLION/UL 10*6/mm3 4.20-5.80 N Erythrocytes [#/volume] in Blood by Automated count WBC 10.4 THOUSAND/UL 10*3/mm3 3.8-10.8 N Leukocytes [#/volume] in Blood by Automated count SGPT (ALT) 24 U/L 9-46 N Alanine aminotransferase [Enzymatic activity/volume] in Serum or Plasma SGOT (AST) 24 U/L 10-40 N Aspartate aminotransferase [Enzymatic activity/volume] in Serum or Plasma ALK PHOS 94 U/L 36-130 N Alkaline phosphatase [Enzymatic activity/volume] in Blood BILI TOTAL 0.5 mg/dL 0.2-1.2 N Bilirubin. total [Mass/volume] in Serum or Plasma A/G RATIO 2.1 (calc) 1.0-2.5 N Albumin/ Globulin [Mass Ratio] in Serum or Plasma GLOBULIN 2.2 1.9-3.7 N Globulin [Mass/volume] in Serum ALBUMIN 4.6 g/dL 3.6-5.1 N Albumin [Mass/volume] in Serum or Plasma PROTEIN, TOT 6.8 g/dL 6.1-8.1 N Protein [Mass/volume] in Serum or Plasma CALCIUM 9.5 mg/dL 8.6-10.3 N Calcium [Moles/volume] in Serum or Plasma CO2 28 mmol/L 20-32 N Carbon dioxid e, total [Moles/volume] in Venous blood CHLORIDE 102 mmol/L 98-110 N Chloride [Moles/volume] in Serum or Plasma POTASSIUM 4.6 mmol/L 3.5-5.3 N Potassium [Moles/volume] in Serum or Plasma SODIUM 136 mmol/L 135-146 N Sodium [Moles/volume] in Serum or Plasma BUN/CREAT NOT APPLICABLE (calc) 6-22 Urea nitrogen/Creatinine [Mass Ratio] in Serum or Plasma CREATININE 0.80 mg/dL 0.60-1.29 N Creatini ne [Mass/volume] in Serum or Plasma BUN 19 mg/dL 7-25 N Urea nitrogen [Mass/volume] in Serum or Plasma GLUCOSE SER 88 mg/dL 65-139 N Glucose [Mass/volume] in Serum or Plasma Plan of Care Type Date Detail Pending order CBC with Differe ntial Pending order CMP Pending order Quantiferon Gold TB Assay Pending order T-SPOT Pending order Hep A Total AB Pending order Hep B Core AB, T otal Pending order Hep B Surface AB Pending order Hep B Surface AG Pending order Hep C AB Procedures Code Procedure Name Date Entry Date [id number] CBC with Differential 2021 CPT-80319 CMP CPT-74155 Quantiferon Gold TB Assay 20 22/06/14 CPT-06764 T-SPOT CPT-79673 Hep A Total AB CPT-74891 Hep B Core AB, Total CPT-35758 Hep B Surface AB 477805 Hep B Surface AG CPT-52496 Hep C AB Vital Signs Date Name Value Unit Description BMI (Body Mass Index) 32.78 kg/m2 Bod y Mass Index (Ratio) Body Temperature 97.8 [degF] temperat ure E&M BP Diastolic 90 mm[Hg] blood pressu re, diastolic BP Systolic 126 mm[Hg] blood pressur e, systolic Heart Rate 76 /min pulse rate Height 69 [in_us] height E&M Respiratory Rate 16 /min respirat ory rate E&M Weight Measured 222 [lb_av] weight E& M Immunizations No information available. Advance Directives Directive Description Start Date NONE EST. AT THIS TIME
[2024-07-07 12:10] LABS: Basophils # 0.1 K/mm3 (0-0.2); Basophils % 1.1 % (0.1-2.0); Eosinophils # 0.1 K/mm3 (0.0-0.4); Eosinophils % 0.9 % (0.1-12.0); Hematocrit 49.8 % (42.0-52.0); Lymphocytes % 25.2 % (10-50); Mean Corpuscular HGB Conc 32.2 g/dL (31.8-35.4); Mean Corpuscular Hemoglobin 31.4 pg (27.0-31.2); Mean Corpuscular Volume 97.6 fl (80-94); Monocytes # 0.5 K/mm3 (0.1-1.0); Monocytes % 6.5 % (1.7-9.3); Neutrophils # 5.2 K/mm3 (1.8-7.8); Neutrophils % 66.3 % (37.0-80.0); Platelet Count 369 K/mm3 (142-424); Red Blood Count 5.11 M/mm3 (4.60-6.20); White Blood Count 7.8 K/mm3 (4.8-10.8)
[2024-07-07 12:39] LABS: Erythrocyte Sedimentation Rate 8 mm/hr (0-15)
[2024-07-07 13:14] LABS: Alanine Aminotransferase 51 U/L (12-78); Albumin Level 3.7 g/dl (3.5-5.0); Albumin/Globulin Ratio 1.3 (1.1-1.8); Alkaline Phosphatase 103 U/L (38-126); Anion Gap 10.8 mEq/L (5-15); Aspartate Amino Transferase 38 U/L (17-59); Bilirubin,Total 0.5 mg/dl (0.2-1.3); Blood Urea Nitrogen 10 mg/dl (9-20); Calcium 9.3 mg/dl (8.4-10.2); Carbon Dioxide 25 mmol/L (22.0-30.0); Chloride 107 mmol/L (98-107); Estimated Glomerular Filt Rate 121 ml/min (>60); GFR (African American) 147 ML/MIN (>60); Globulin 2.8 g/dL (1.3-3.2); Glucose 107 mg/dl (74-100); Potassium 3.8 mmoL/L (3.5-5.1); Sodium 139 mmol/L (136-145); Total Protein,Serum 6.5 g/dl (6.3-8.2)
[2024-07-07 13:20] LABS: C-Reactive Protein 40.6 mg/L (0-4)
== END 2024-07-07 23:59 | disposition home or self-care (01) ==
LOC: LAB 11:54
PROVIDERS: PCP Family Medicine; Visit Provider Nurse Practitioner Family
DX: M05.852 Other rheumatoid arthritis with rheumatoid factor of left hip (principal); D84.821 Immunodeficiency due to drugs; Z79.899 Other long term (current) drug therapy
CPT/HCPCS: 36415; 80053; 85025; 85651; 86140

== ENCOUNTER 2024-09-25 07:18 | Outpatient (CLI) | payer BC, SELFPAY ==
--- NOTE | 2024-09-25 07:25 | US_ITS ---
PROCEDURE INFORMATION: Exam: US Abdomen Complete Exam date and time: 09/25/2024 7:19 AM Age: 44 years old Clinical indication: Abdominal pain; Additional info: Abd pain TECHNIQUE: Imaging protocol: Real-time ultrasound of the abdomen with image documentation. Complete exam. COMPARISON: [facility] US abdomen limited 06/02/2019 9:16 AM FINDINGS: Liver: Diffuse fatty infiltration of the liver. No significant intrahepatic biliary ductal dilation. Gallbladder: The gallbladder is adequately distended without evidence of gallstones. Normal wall thickness without pericholecystic fluid. Sonographic Sahu's sign is negative. Biliary ducts: The common duct measures approximately 4 mm. Pancreas: Pancreas is mostly obscured by bowel gas. Visualized pancreas is unremarkable. Right kidney: Measures 10.1 cm and demonstrates normal echotexture, normal renal cortical thickness without nephrolithiasis or hydronephrosis. Left kidney: Measures 10.7 cm and demonstrates normal echotexture, normal renal cortical thickness without nephrolithiasis or hydronephrosis. Spleen: Spleen is unremarkable. Aorta: Unremarkable visualized aorta. Inferior vena cava: Unremarkable visualized IVC. Other findings: No evidence of ascites. IMPRESSION: 1. Nonalcoholic fatty liver disease (NAFLD)/metabolic dysfunction-associated steatotic liver disease (MASLD) versus alcoholic hepatitis. Recommend correlation with liver function tests. 2. Normal gallbladder without evidence of cholelithiasis or acute cholecystitis. 3. Normal kidneys without hydronephrosis.
[2024-09-25 08:13] LABS: Basophils # 0.1 K/mm3 (0-0.2); Basophils % 0.9 % (0.1-2.0); Eosinophils # 0.1 K/mm3 (0.0-0.4); Eosinophils % 1.2 % (0.1-12.0); Hematocrit 47.7 % (42.0-52.0); Hemoglobin 15.8 g/dL (14.1-18.0); Lymphocytes # 2.9 K/mm3 (0.7-4.5); Lymphocytes % 27.3 % (10-50); Mean Corpuscular HGB Conc 33.1 g/dL (31.8-35.4); Mean Corpuscular Hemoglobin 29.9 pg (27.0-31.2); Mean Corpuscular Volume 90.3 fl (80-94); Mean Platelet Volume 6.9 fl (7.4-10.4); Monocytes # 0.7 K/mm3 (0.1-1.0); Monocytes % 6.5 % (1.7-9.3); Neutrophils # 6.8 K/mm3 (1.8-7.8); Neutrophils % 64.2 % (37.0-80.0); Platelet Count 366 K/mm3 (142-424); Red Blood Count 5.28 M/mm3 (4.60-6.20); Red Cell Distribution Width 13.9 % (11.5-17.5); White Blood Count 10.5 K/mm3 (4.8-10.8)
[2024-09-25 09:03] LABS: Albumin Level 3.9 g/dl (3.5-5.0); Chloride 107 mmol/L (98-107); Sodium 137 mmol/L (136-145)
[2024-09-25 09:04] LABS: Potassium 4.4 mmoL/L (3.5-5.1)
[2024-09-25 09:06] LABS: Alanine Aminotransferase 35 U/L (12-78); Alkaline Phosphatase 78 U/L (38-126); Anion Gap 5.4 mEq/L (5-15); Aspartate Amino Transferase 34 U/L (17-59); Bilirubin,Total 0.6 mg/dl (0.2-1.3); Blood Urea Nitrogen 20 mg/dl (9-20); Carbon Dioxide 29 mmol/L (22.0-30.0); Estimated Glomerular Filt Rate 104 ml/min (>60); GFR (African American) 126 ML/MIN (>60); Total Protein,Serum 5.9 g/dl (6.3-8.2)
[2024-09-25 09:07] LABS: Calcium 8.9 mg/dl (8.4-10.2); Glucose 103 mg/dl (74-100)
[2024-09-25 09:12] LABS: C-Reactive Protein 3.1 mg/L (0-4)
[2024-09-25 09:20] LABS: Erythrocyte Sedimentation Rate 15 mm/hr (0-15)
[2024-09-26 08:51] LABS: HBsAg Screen Negative (Negative); HCV Ab Non Reactive (Non Reactive); Hep A Ab, IGM Negative (Negative); Hep B Core Ab, IgM Negative (Negative)
[2024-09-29 15:43] LABS: QuantiFERON-TB Gold Plus Negative (Negative)
== END 2024-09-25 23:59 | disposition home or self-care (01) ==
PROVIDERS: Nurse Practitioner Family; PCP Nurse Practitioner; Visit Provider Nurse Practitioner
DX: R10.9 Unspecified abdominal pain (principal); M05.852 Other rheumatoid arthritis with rheumatoid factor of left hip; Z79.899 Other long term (current) drug therapy; D84.821 Immunodeficiency due to drugs; R53.83 Other fatigue; Z51.81 Encounter for therapeutic drug level monitoring
CPT/HCPCS: 36415; 76700; 80053; 80074; 85025; 85651; 86140; 86480

== ENCOUNTER 2024-10-15 08:01 | Outpatient (CLI) | payer BC, SELFPAY ==
--- NOTE | 2024-10-15 08:05 | CT_ITS ---
FINAL REPORT CLINICAL HISTORY: right sided abd pain COMPARISON: None FINDINGS: CT OF THE ABDOMEN AND PELVIS WITH CONTRAST Axial CT images of the abdomen and pelvis were obtained after the administration of oral and iv contrast. Coronal reformatted images were also obtained and reviewed.This study was performed with techniques to keep radiation doses as low as reasonably achievable (ALARA). Individualized dose reduction techniques using automated exposure control or adjustment of mA and/or kV according to the patient's size were employed. Abdomen: There is a calcified granuloma at the left lung base. Mild scarring is noted in the lingula.. The heart is normal in size. The liver has an unremarkable appearance, without evidence of mass or biliary ductal dilatation. The spleen is unremarkable. No adrenal mass is present. The pancreas has an unremarkable appearance. The kidneys are normal, without evidence of mass or hydronephrosis. The aorta is normal in caliber. There is no free fluid or adenopathy. No mass or abnormal fluid collection is seen. There is a small umbilical hernia containing fat. Pelvis: The appendix is normal. The urinary bladder is unremarkable. No inflammatory process is seen. There is no evidence of mass or adenopathy. There is no evidence of bowel obstruction. IMPRESSION: No evidence of acute intra-abdominal process. Reviewed, Interpreted and Dictated by Gume Saldivar III, MD Transcribed by Dolores Luevano Authenticated and [facility]
[2024-10-15] MEDS: BARIUM SULFATE(READI-CAT2);450ML BOTTLE 450 ML PO (08:23)
[2024-10-15] MEDS: SODIUM CHLORIDE 0.9% 10ML SYR (RAD ONLY) 10 ML IV (08:23)
[2024-10-15] MEDS: IOPAMIDOL-370 (76%);100ML BOTTLE 75 ML IV (08:23)
== END 2024-10-15 23:59 | disposition home or self-care (01) ==
LOC: RAD 08:02
PROVIDERS: PCP Nurse Practitioner; Visit Provider Surgery
DX: R10.9 Unspecified abdominal pain (principal)
CPT/HCPCS: 74177; Q9967

== ENCOUNTER 2025-03-24 09:42 | Emergency (ER) | payer BC, SELFPAY ==
[2025-03-24] VITALS (7 sets, daily range): BP systolic 123–149; BP diastolic 79–107; PULSE 70–82; RESP 12–19; TEMP 36.6; O2SAT 95–98; BMI 36.4
--- NOTE | 2025-03-24 09:51 | ECG_ITS ---
APPROVED REPORT Exam: Resting ECG HR:72 bpm ECG Measurements Heart Rate 72 AXES MS 161 P 57 QRSd 98 QRS 55 QT 387 T 66 QTc 411 Conclusion Sinus rhythm Electronically signed by : ALEX BURCIAGA, 03/25/2025 07:17:20
[2025-03-24 10:04] LABS: Basophils # 0.1 K/mm3 (0-0.2); Basophils % 1.4 % (0.1-2.0); Eosinophils # 0.3 Kmm3 (0.0-0.4); Eosinophils % 3.2 % (0.1-12.0); Hematocrit 49.1 % (42.0-52.0); Hemoglobin 16.6 g/dL (14.1-18.0); Lymphocytes # 1.8 K/mm3 (0.7-4.5); Lymphocytes % 21.2 % (10-50); Mean Corpuscular HGB Conc 33.8 g/dL (31.8-35.4); Mean Corpuscular Volume 94.8 fl (80-94); Mean Platelet Volume 8.7 fl (7.4-10.4); Monocytes # 0.9 K/mm3 (0.1-1.0); Monocytes % 10.9 % (1.7-9.3); Neutrophils # 5.3 K/mm3 (1.8-7.8); Neutrophils % 62.8 % (37.0-80.0); Nucleated Red Blood Cells # 0 10^3/uL; Nucleated Red Blood Cells % 0 %; Platelet Count 280 K/mm3 (142-424); Red Blood Count 5.18 M/mm3 (4.60-6.20); Red Cell Distribution Width 13.4 % (11.5-17.5); Red Cell Distribution Width-SD 47.5 fL; White Blood Count 8.4 K/mm3 (4.8-10.8)
[2025-03-24 10:10] LABS: Alanine Aminotransferase 67 U/L (12-78); Albumin/Globulin Ratio 1.3 (1.1-1.8); Alkaline Phosphatase 88 U/L (38-126); Anion Gap 4.3 mEq/L (5-15); Aspartate Amino Transferase 55 U/L (17-59); Bilirubin,Total 0.5 mg/dl (0.2-1.3); Blood Urea Nitrogen 16 mg/dl (9-20); Calcium 8.9 mg/dl (8.4-10.2); Carbon Dioxide 32 mmol/L (22.0-30.0); Chloride 106 mmol/L (98-107); Creatinine Clearance Estimated 181 mL/min (50-200); Estimated Glomerular Filt Rate 104 ml/min (>60); GFR (African American) 125 ML/MIN (>60); Globulin 3.2 g/dL (1.3-3.2); Glucose 106 mg/dl (74-100); Lipase 141 U/L (23-300); Potassium 4.3 mmoL/L (3.5-5.1); Sodium 138 mmol/L (136-145); Total Protein,Serum 7.2 g/dl (6.3-8.2)
[2025-03-24 10:12] LABS: Activated Partial Thrombo Time 25.6 seconds (22.8-30.6); Ammonia < 9 umol/L (9-30); INR 0.91 (0.9-1.1); Prothrombin Time 10.3 seconds (10.1-12.5)
[2025-03-24 10:18] LABS: Lactate Venous 1.4 mmol/L (0.4-2.0); VBG Base Excess -0.7 mmol/L (-2.4-2.3); VBG HCO3 25.9 mmol/L (23-30); VBG Oxygen Saturation 55.6 % (50-70); VBG PCO2 55.2 mmol/L (35-51); VBG PH 7.29 mmol/L (7.31-7.41); VBG PO2 29.3 mmol/L (28-40); VBG Total CO2 27.6 mmol/L (23-27)
[2025-03-24 10:19] LABS: NT Pro Brain Natriuretic Pep. 21.9 pg/mL (0-125)
--- NOTE | 2025-03-24 10:45 | ED_ITS ---
Discharge Plan Disposition Patient Disposition: Home, Self-Care Chief Complaint: Abdominal Pain Prescriptions Prescriptions: No Action omeprazole 40 mg capsule,delayed release(DR/EC) 40 mg PO DAILY Orencia (with maltose) 250 mg recon soln IV Q4W ibuprofen 600 mg tablet 600 mg PO Q8H PRN (Reason: pain) Qty: 20 0RF benzonatate 100 MG capsule 100 mg PO TIDP PRN (Reason: Cough) Qty: 30 0RF meloxicam 7.5 MG tablet 7.5 mg PO DAILY Referrals Follow up/Referrals: Ira Hernandez APRN [Primary Care Provider] - See instructions Activity Restrictions/Add. Instructions Additional Instructions/Restrictions: Call your family doctor to establish care for this visit to the emergency department and schedule follow-up within 48 hours to ensure improvement. If you have any worsening of your condition or any other concerning signs or symptoms, return to the emergency department or your primary care doctor for further evaluation. Clinical Impressions Clinical Impression: Abdominal distension Instructions Patient Instructions: DI for Acute Abdominal Pain Print Language Print Language: Mosotho Discharge ED Provider: Juan Jose Gifford General Adult HPI General Chief complaint: Abdominal Pain Stated complaint: sent by by Mary for abd fluid retention Time Seen by Provider: 03/24/25 09:57 Mode of Arrival: Ambulatory Source of Information: Patient Description of Symptoms (Recalled from ER Triage Doc. by RN): Patient is an everyday drinker with increased abdomen swelling and pain for 1 month. History of Present Illness HPI narrative: Please note that above description of symptoms, in this electronic medical record under categorization of recalled from ER triage doctor by RN are reflective of an initial nursing assessment, however, is not reflective of my full history and physical exam that was personally taken and clarified. Consequentially, this preceding description of symptoms, which may include the patient's categorized chief complaint in the EMR, do not reflect my personal clinical impression, and the ultimate description of history of present illness and patient stated complaints should be deferred to this section of the note. Unless stated otherwise or congruent with this section of the note, additional signs, symptoms, or incongruence should be interpreted as inaccurate with my clinical impression. Related Data Home Medications ?Medication ?Instructions ?Recorded ?Confirmed meloxicam 7.5 mg tablet 7.5 mg PO DAILY Arthritis 09/11/21 10/01/24 abatacept (with maltose) 250 mg IV Q4W 10/02/21 10/01/24 intravenous solution (Orencia (with maltose)) omeprazole 40 mg capsule,delayed 40 mg PO DAILY 10/02/21 10/01/24 release Previous Rx's ?Medication ?Instructions ?Recorded ibuprofen 600 mg tablet 600 mg PO Q8H PRN pain #20 tabs 10/02/21 benzonatate 100 mg capsule 100 mg PO TIDP PRN Cough #30 caps 07/18/22 Allergies Allergy/AdvReac Type Severity Reaction Status Date / Time No Known Allergies Allergy Verified 10/01/24 09:35 [facility] Disclaimer: The information contained in this section may have been updated after the patient was seen, as this information can be updated by other users. Social History (Updated 10/01/24 @ 09:37 by NKECHI Diaz) Smoking Status: Current every day smoker tobacco type: cigarettes packs per day: 2 alcohol intake: current alcohol intake frequency: 3 or more drinks per day substance use type: denies use current occupational status: employed Travel in the last 8 weeks: None housing: house caffeine: Yes Have you lived/traveled outside [place] in past 30 days?: No Contact w/someone who lives/traveled outside [place] past 30 days?: No Exposure to someone with infectious disease in past 14 days?: No Do you have a fever (greater than 100.4 F or 38 C)?: No Have you tested positive for COVID-19: No Exposed to someone with COVID-19 in past 14 days?: No Do you have a sore throat?: No Do you have a cough?: No Do you have any weakness?: No Do you have any diarrhea?: No Are you experiencing any unusual bleeding?: No Do you have any muscle aches/pain?: No Do you have any abdominal pain?: Yes Are you experiencing loss of taste or smell?: No Other Medical History Have you received the Flu Vaccine for this season: No Have you received the Pneumonia Vaccine: No ROS Obtained: Yes All systems reviewed & no additional complaints except as documented Physical Exam General General appearance: alert and obese Head Head exam: atraumatic and normocephalic Eye Eye exam: Present normal appearance, PERRL and EOMI Neck Neck exam: Present normal inspection, full ROM and trachea midline Respiratory Respiratory exam: Absent respiratory distress, wheezes, stridor, accessory muscle use or prolonged expiratory phase Cardiovascular Cardiovascular exam: Present other (Pulses equal symmetric in upper and lower extremities) Abdominal Exam Abdominal exam: Present soft, distention and tenderness; Absent guarding, rebound, rigidity or pulsatile mass Abdominal tenderness: Present LUQ and mild Extremities Exam Extremities exam: Absent edema Neurological Exam Neurological exam: Present alert, oriented X3 and CN II-XII intact; Absent motor sensory deficit Skin Skin exam: Present warm and dry; Absent diaphoresis or erythema Medical Decision Making Medical Records Medical records reviewed: Yes I reviewed the patient's medical records. Screening: Per USPSTF and CDC recommendations, given the prevalence of disease in our region, it is our hospital?s policy to screen for HIV and viral Hepatitis for all patients aged 18 and over and those with ongoing risk factors. Jorge Alberto Inquiry Pt receiving controlled substance: No Jorge Alberto was queried for this patient: No Vital Signs: 03/24/25 09:50 03/24/25 09:51 03/24/25 10:01 Temperature 97.9 F Temperature Source Oral Pulse Rate 77 72 Pulse Rate [Radial] 82 Respiratory Rate 18 18 19 Blood Pressure 137/97 H 123/81 Blood Pressure [Right Arm] 149/107 H Blood Pressure Mean [Right Arm] 121 Blood Pressure Source [Right Arm] Automatic Cuff Blood Pressure Position [Right Arm] Sitting 02 Sat by Pulse Oximetry 96 98 95 Oxygen Delivery Method Room Air Room Air Room Air 03/24/25 10:30 03/24/25 11:31 03/24/25 12:01 Temperature Temperature Source Pulse Rate 76 70 71 Pulse Rate [Radial] Respiratory Rate 19 12 16 Blood Pressure 127/87 131/79 142/96 H Blood Pressure [Right Arm] Blood Pressure Mean [Right Arm] Blood Pressure Source [Right Arm] Blood Pressure Position [Right Arm] 02 Sat by Pulse Oximetry 96 96 96 Oxygen Delivery Method Room Air Room Air Room Air Lab Data Lab Results 03/24/25 09:50: WBC 8.4, RBC 5.18, Hgb 16.6, Hct 49.1, MCV 94.8 H, MCH 32.0 H, MCHC 33.8, RDW 13.4, Plt Count 280, MPV 8.7, Neut % (Auto) 62.8, Lymph % (Auto) 21.2, [place] % (Auto) 10.9 H, Eos % (Auto) 3.2, Baso % (Auto) 1.4, Neut # (Auto) 5.3, Lymph # (Auto) 1.8, [place] # (Auto) 0.9, Eos # (Auto) 0.3, Baso # (Auto) 0.1, PT 10.3, INR 0.91, APTT 25.6, Sodium 138, Potassium 4.3, Chloride 106, Carbon Dioxide 32 H, Anion Gap 4.3 L, BUN 16, Creatinine 0.80, Estimated Creat Clear 181, Estimated GFR 104, Est GFR ( Amer) 125, Glucose 106 H, Calcium 8.9, Total Bilirubin 0.5, AST 55, ALT 67, Alkaline Phosphatase 88, Ammonia < 9 L, NT-Pro-B Natriuret Pep 21.9, Total Protein 7.2, Albumin 4.0, Globulin 3.2, Albumin/Globulin Ratio 1.3, Lipase 141 03/24/25 09:57: VBG pH 7.29 L, VBG pCO2 55.2 H, VBG pO2 29.3, VBG HCO3 25.9, VBG Total CO2 27.6 H, VBG O2 Saturation 55.6, VBG Base Excess -0.7, VBG Lactic Acid 1.4 03/24/25 09:50 03/24/25 09:50 Orders (Tests/Meds): ED MEDICATIONS Discontinued Medications Generic Name Dose Route Start Last Admin Trade Name Freq PRN Reason Stop Dose Admin Iopamidol 75 ml 03/24/25 11:05 03/24/25 11:05 Iopamidol-370 (76%);100ml Bottle IV 03/24/25 11:06 75 ml ONCE ONE Administration Sodium Chloride 10 ml 03/24/25 11:05 03/24/25 11:05 Sodium Chloride 0.9% 10ml Syr (Rad Only) IV 03/24/25 11:06 10 ml ONCE ONE Administration ORDERS Category Date Time Status CT abdomen pelvis w con Stat Cat Scan 03/24/25 10:46 Completed POCUS Point of Care (ER Only) Stat Exams 03/24/25 10:47 Completed Ammonia Stat Lab 03/24/25 09:50 Completed CBC w/Auto Diff [Complete Blood Count Auto Diff] Stat Lab 03/24/25 09:50 Completed CMP [Comprehensive Metabolic Panel] Stat Lab 03/24/25 09:50 Completed HIV Combo Stat Lab 03/24/25 09:50 Received Lipase Stat Lab 03/24/25 09:50 Completed NT Pro Brain Natriuretic Pep. Stat Lab 03/24/25 09:50 Completed PT INR [Prothrombin Time INR] Stat Lab 03/24/25 09:50 Completed PTT [Activated Partial Thrombo Time] Stat Lab 03/24/25 09:50 Completed VBG [Venous Blood Gas] Stat RT 03/24/25 09:57 Completed Medical Decision Narrative: 45-year-old male history of hypertension, hyperlipidemia, tobacco use disorder, alcohol use disorder drinking 12-16 beers per day last drink earlier today, rheumatoid arthritis on daily celecoxib presenting with abdominal pain. States that it has been feeling this way for about a week to 2 weeks. Distended, intermittently tender. Able to tolerate p.o. intake, no vomiting or diarrhea, last bowel movement was yesterday and normal for him without blood or mucus. No fevers or chills, decrease in urinary output, yellowing of the skin or eyes, generalized itching, dark urine, or any other concerns. Went to his family doctor today, recommended he come to the emergency department for further evaluation. History was obtained via conversation with patient. On arrival, patient hemodynamically stable, alert, oriented x4, appropriate, GCS 15, moving all extremities spontaneously, pupils equal and reactive to light. Full physical exam performed and significant for chronically ill-appearing male no acute distress. Speaking in full sentences. Lungs are clear, cardiac exam otherwise normal. His abdomen is soft, but distended and mildly tender in left upper quadrant. No evidence of hernia. No flank tenderness. No obvious fluid wave or spider angioma. Patient does not appear jaundiced or have scleral icterus. Differential includes gastric ulcer, dyspepsia, gastritis, gastroenteritis, pancreatitis, small bowel obstruction, gastrointestinal bleed, ascites buildup, SBP, among others. Patient placed on continuous cardiac monitoring and continuous pulse ox with initial blood pressure 149/107, heart rate 82, saturation 96% on room air. Independent interpretation of EKG shows sinus rhythm 72 bpm with MT interval 161, QRS 98, QTc 411. Normal axis and no acute ischemic change. Workup independently interpreted and significant for nonactionable CBC. Patient's coags normal with normal INR. VBG with mild respiratory acidosis pH 7.29, CO2 55.2, bicarb normal at 25.9 and normal lactic acid at 1.4. Patient's kidney function normal, chemistry normal, LFTs normal and lipase negative. [id number] ultrasound performed and CT of the abdomen and pelvis was ordered. On independent interpretation of imaging, no acute intra-abdominal abnormality, no obvious evidence of fluid or ascites. See radiology read for full review of final results. On reevaluation, additional tests/treatment. Given patient presentation, workup, history, this most likely represents idiopathic abdominal pain. It was recommended that patient stop taking daily NSAID and recommended only for symptomatic flareups of RA. He voiced his understanding. Because patient at baseline without signs or symptoms of clinical decompensation, deemed appropriate for discharge. Results were relayed to patient who voiced understanding and were agreeable to outpatient management and follow up. I discussed my clinical impression with patient and answered all questions. At this time, the evidence for any other entities in the differential is insufficient to warrant any further testing or ED observation. This was explained as well. Advisory was given that persistent or worsening symptoms require further evaluation. I confirmed the understanding of this discussion. Emergency Spill Response Technician disclaimer Much of this encounter note is an electronic nuclear medicine physician spoken language to printed text. Electronic nuclear medicine physician of the spoken language may permit errors. Although I have reviewed the note, some errors may still exist. Procedures Limited Ultrasound Indication:: Limited RUQ ultrasound Indication: Abdominal distention and pain Identified structures: -Gallbladder -Gallbladder wall -Common bile duct -Liver Findings: Sonographic Sahu sign: Absent Gallstones: Absent Sludge: Absent Pericholecystic fluid: Absent Maximal GB wall thickness (mm) (normal is </= 3mm): Normal Common bile duct width (mm) (normal is </= 6mm): Normal Gallbladder width (cm) (normal is < 4cm): Normal Gallbladder length (cm) (normal is < 10cm): Normal Impression: Normal right upper quadrant ultrasound. Patient has hyperechoic liver, but no obvious mass Images were saved to permanent archive The study was technically adequate CPT 78675-19 This study was performed by me, and I personally interpreted all images/videos. Based on my clinical judgement, these images were adequate and did not necessitate further imaging. Miscellaneous Procedure Procedure Performed: Alcohol cessation: Approximately 10 minutes were spent discussing importance of alcohol cessation. Patient voiced his understanding. Family at bedside to corroborate. He is willing to try, stating that he has quit multiple times in the past for short periods of time. Declining anti-withdrawal meds Critical Care Critical Care Time Critical Care Time: No
--- NOTE | 2025-03-24 10:46 | CT_ITS ---
FINAL REPORT TECHNIQUE: Thin section axial images are obtained through the abdomen and pelvis after intravenous contrast. Reconstruction images were obtained from the axial data. Exam was performed using dose reduction techniques. This study was performed with techniques to keep radiation doses as low as reasonably achievable (ALARA). Individualized dose reduction techniques using automated exposure control or adjustment of mA and/or kV according to the patient's size were employed. CLINICAL HISTORY: distension, abd pain/cirrhosis/on NSAIDS COMPARISON: 10/15/2024 FINDINGS: LUNG BASES: Lung bases are clear. Heart size is normal. LIVER: There is diffuse fatty infiltration of the liver. No focal lesion. GALLBLADDER/BILIARY SYSTEM: Gallbladder is present. No gallstones. No biliary dilatation. SPLEEN: Unremarkable. PANCREAS: Unremarkable. ADRENALS: Unremarkable. KIDNEYS/URETERS/BLADDER: No hydronephrosis, renal mass, or renal stone. Unremarkable urinary bladder. GI TRACT: No small bowel obstruction or dilatation. Normal appendix. No acute colon abnormality. PELVIC ORGANS: Prostate normal for age. LYMPH NODES/RETROPERITONEUM/MESENTERY: No lymphadenopathy. No abdominal aortic aneurysm. ABDOMINAL WALL: The abdominal wall is intact. FREE FLUID: No ascites. BONES: No acute osseous abnormality. IMPRESSION: Diffuse fatty infiltration of the liver is present. No acute abdominal or pelvic abnormality is identified. Reviewed, Interpreted and Dictated by Ekaterina Noyola MD Transcribed by Erma Kelly Authenticated and [facility]
[2025-03-24] MEDS: SODIUM CHLORIDE 0.9% 10ML SYR (RAD ONLY) 10 ML IV (11:05)
[2025-03-24] MEDS: IOPAMIDOL-370 (76%);100ML BOTTLE 75 ML IV (11:05)
[2025-03-25 11:10] LABS: HIV Combo NEGATIVE (Negative)
== END 2025-03-24 12:48 | disposition home or self-care (01) ==
PROVIDERS: Emergency Provider Emergency Medicine; PCP Nurse Practitioner
DX: R10.812 Left upper quadrant abdominal tenderness (principal); R14.0 Abdominal distension (gaseous); F10.10 Alcohol abuse, uncomplicated; M06.9 Rheumatoid arthritis, unspecified; Z11.4 Encounter for screening for human immunodeficiency virus [HIV]
CPT/HCPCS: 74177; 80053; 82140; 82803; 83690; 83880; 85025; 85610; 85730; 87389; 93005; 99285; Q9967

== ENCOUNTER 2025-07-01 08:54 | Outpatient (CLI) | payer BC, SELFPAY ==
--- OUTSIDE RECORDS SUMMARY | 2025-05-12 13:00 | XMS_ITS | Encounter Summary ---
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 (Primary Dx); Immunodeficiency due to treatment with immunosuppressive medication; Encounter for long-term (current) use of high-risk medication; Alopecia areata; Chronic pain of both ankles; Smoker; Alcohol dependence with unspecified alcohol-induced disorder; Other fatigue; High risk medication use; Encounter for medication monitoring Social History Tobacco Use Types Packs/Day Years Used Date Smoking Tobacco: Every Day Cigarettes Smokeless Tobacco: Never Tobacco Cessation:Ready to Q uit: Not Asked; Counseling Given: Not Answered Alcohol Use Standard Drinks/Week Comments Yes 0 (1 standard drink = 0.6 oz pur e alcohol) BEER MORE THAN 5 GLASSES DAILY Sex and Gender Information Value Date Recorded Sex Assigned at Not on file Legal Sex Male 1:33 PM EDT Gender Identity Not on file Sexual Orientation Not on file documented as of this encounter Last Filed Vital Signs Vital Sign Reading Time Taken Comments Blood Pressure 136/70 05/12/2025 1:00 PM EDT Pulse 88 05/12/2025 1:00 PM EDT Temperature 36.9 C (98.4 F) 05/12/2025 1:00 PM EDT Respiratory Rate - - Oxygen Saturation - - Inhaled Oxygen Concentration - - Weight 110 kg (243 lb) 05/12/2025 1:00 PM EDT Height 182.9 cm (6') 05/12/2025 1:00 PM EDT Body Mass Index 32.96 05/12/2025 1:00 PM EDT documented in this encounter Progress Notes * Miya Benjamin APRN - 05/12/2025 1:00 PM EDTAssociated Problem(s): 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 Dx 2019; +RF in high titer. +CCP antibody greater than 250. Avoid methotrexate with his history of alcohol abuse. Prefer IV medications or medications given by office due to compliance concerns. Previous: Enbrel (Injection site reaction/dizziness), Plaquenil (ineffective), Cimzia (alopecia), IV Orencia (07/2021 start- stop 09/01/24) Current: Rinvoq started 09/2024, prednisone 5 mg daily, Celebrex PRN - Continue Rinvoq- He has been taking every other day with improvement in symptoms. - Continue prednisone 5 mg daily for now - He is holding Celebrex currently due to recent gastritis. Request records from [facility].He has upcoming scope. - Check labs today - RTC 3 to 4 months * Miya Benjamin APRN - 05/12/2025 1:00 PM EDTAssociated Problem(s): Immunodeficiency due to treatment with immunosuppressive medication Rinvoq well tolerated and helpful Infectious disease cleared him for the positive QTB in the past QTB negative and hepatitis panel negative 01/2025 No recent serious infections * Miya Benjamin APRN - 05/12/2025 1:00 PM EDTAssociated Problem(s): Encounter for long-term (current) use of high-risk medication He feels that sulfasalazine worsened his facial rash. He has not been taking this for quite some time. * Miya Benjamin APRN - 05/12/2025 1:00 PM EDTAssociated Problem(s): Alopecia areata - He previously followed with dermatology--Dr. Reyes. - Referral back to dermatology for bumps on face. - He has had hair regrowth with stopping TNFs and hair regrowth has continued to improve with Rinvoq * Miya Benjamin APRN - 05/12/2025 1:00 PM EDTAssociated Problem(s): Chronic pain of both ankles Bilateral ankle steroid injection: 08/20/23 Right ankle steroid injection: 08/20/24 Can inject every 3-4 months as needed Doing well today * Miya Benjamin APRN - 05/12/2025 1:00 PM EDTAssociated Problem(s): Smoker - Continue follow up with PCP. - Encouraged smoking cessation * Miya Benjamin APRN - 05/12/2025 1:00 PM EDTAssociated Problem(s): Alcohol dependence with unspecified alcohol-induced disorder Beer 12 or more daily. No hard liquor He reports he has cut back quite a bit on his alcohol intake, but still drinking. DUI 07/2021. He was told by GI that he has a fatty liver. We will cautiously continue Rinvoq, but will need to closely monitor liver function tests. We discussed that he needs to try to cut back on his drinking. * Miya Benjamin APRN - 05/12/2025 1:00 PM EDT Images from the original note were not included. Office Follow Up Date: 07/29/2024 Patient Name: Kirk Austin : 1980 Chief Complaint: Chief Complaint Patient presents with Rheumatoid Arthritis History of Present Illness: Kirk Austin is a 45 y.o. male who is being seen today to follow up for RA. He has a past medical history of arthritis, tobacco use, alcohol dependence, alopecia, and fatigue. We previously gave him IV Orencia. He was off Orencia infusions for almost a year due to medicationbeing unavailable. When he restarted infusions summer 2023, they were not helpful. The patient stated he has been doing better since his last visit. He rates his pain 1/10 and has 10 minutes of morning stiffness daily. He is currently prescribed Rinvoq, prednisone 5 mg daily, and Celebrex PRN. He feels the Rinvoq has been very helpful for him. He is only taking a dose every other day and feels well. His hair growth has improved. He has had erythematous nodular rash on his cheeks and nose. We referred him back to derm at his last OV but he did not keep the appointment. He feels the facial rash has improved. He has had poison angie and is currently on steroid pack. He had CT abdomen in interim at [facility] in the interim that he reports was normal/stable.He went in due to stomach pain likely related to gastritis. He reports she has an upcoming scope. He has stopped taking the Celebrex for now. Subjective Review of Systems Eyes: Positive for blurred vision, photophobia and discharge. Musculoskeletal: Positive for arthralgias, joint swelling and myalgias. All other systems reviewed and are negative. I have reviewed and updated the patient's chief complaint, history of present illness, review of systems, past medical history, surgical history, family history, social history, medications and allergy list as appropriate. Medications: Current Outpatient Medications: albuterol sulfate HFA 108 (90 Base) MCG/ACT inhaler, Inhale 1 puff 4 (Four) Times a Day., Disp: , Rfl: celecoxib (CeleBREX) 200 MG capsule, Take 1 capsule by mouth Daily As Needed for Mild Pain., Disp: 30 capsule, Rfl: 3 omeprazole (priLOSEC) 40 MG capsule, Take 1 capsule by mouth Daily. BEFORE A MEAL, Disp: , Rfl: predniSONE (DELTASONE) 5 MG tablet, Take 1 tablet by mouth Daily., Disp: 30 tablet, Rfl: 3 Upadacitinib ER (Rinvoq) 15 MG tablet sustained-release 24 hour, Take 1 tablet by mouth Daily., Disp: 30 tablet, Rfl: 5 Allergies: Allergies Allergen Reactions Acetaminophen Provider Review Needed Dextromethorphan Provider Review Needed Doxylamine Succinate (Sleep) Provider Review Needed Pseudoephedrine Hcl Provider Review Needed Objective Physical Exam: Vital Signs: Vitals: 05/12/25 1300 BP: 136/70 Pulse: 88 Temp: 98.4 ??F (36.9 ??C) Weight: 110 kg (243 lb) Height: 182.9 cm (72 ) PainSc: 1 Body mass index is 32.96 kg/m??. Defer to PCP Physical Exam Constitutional: Appearance: Normal appearance. HENT: Head: Normocephalic and atraumatic. Eyes: Conjunctiva/sclera: Conjunctivae normal. Pupils: Pupils are equal, round, and reactive to light. Cardiovascular: Rate and Rhythm: Normal rate and regular rhythm. Heart sounds: Normal heart sounds. Pulmonary: Effort: Pulmonary effort is normal. Breath sounds: Normal breath sounds. Abdominal: General: There is distension. Musculoskeletal: General: Normal range of motion. Cervical back: Normal range of motion. Comments: No synovitis today No obvious joint deformities, no subluxation or ulnar deviation. Skin: General: Skin is warm and dry. Comments: Nodular, erythematous rash on nose cheeks and forehead Neurological: General: No focal deficit present. Mental Status: He is alert and oriented to person, place, and time. Psychiatric: Mood and Affect: Mood normal. Behavior: Behavior normal. Thought Content: Thought content normal. Judgment: Judgment normal. 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 +CCP antibody greater than 250. Avoid methotrexate with his history of alcohol abuse. Prefer IV medications or medications given by office due to compliance concerns. Previous: Enbrel (Injection site reaction/dizziness), Plaquenil (ineffective), Cimzia (alopecia), IV Orencia (07/2021 start- stop 09/01/24) Current: Rinvoq started 09/2024, prednisone 5 mg daily, Celebrex PRN - Continue Rinvoq- He has been taking every other day with improvement in symptoms. - Continue prednisone 5 mg daily for now - He is holding Celebrex currently due to recent gastritis. Request records from [facility].He has upcoming scope. - Check labs today - RTC 3 to 4 months Immunodeficiency due to treatment with immunosuppressive medication Rinvoq well tolerated and helpful Infectious disease cleared him for the positive QTB in the past QTB negative and hepatitis panel negative 01/2025 No recent serious infections Encounter for long-term (current) use of high-risk medication He feels that sulfasalazine worsened his facial rash. He has not been taking this for quite some time. Alopecia areata - He previously followed with dermatology--Dr. Reyes. - Referral back to dermatology for bumps on face. - He has had hair regrowth with stopping TNFs and hair regrowth has continued to improve with Rinvoq Chronic pain of both ankles Bilateral ankle steroid injection: 08/20/23 Right ankle steroid injection: 08/20/24 Can inject every 3-4 months as needed Doing well today Smoker - Continue follow up with PCP. - Encouraged smoking cessation Alcohol dependence with unspecified alcohol-induced disorder Beer 12 or more daily. No hard liquor He reports he has cut back quite a bit on his alcohol intake, but still drinking. DUI 07/2021. He was told by GI that he has a fatty liver. We will cautiously continue Rinvoq, but will need to closely monitor liver function tests. We discussed that he needs to try to cut back on his drinking. Follow Up: Return in about 4 months (around 09/11/2025) for Miya Benjamin APRN, BRUCE Washington APRN. 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 Encounter for long-term (current) use of high-risk medication CBC (NO DIFF) Routine 05/12/2025 1:23 PM EDT 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 Encounter for long-term (current) use of high-risk medication C-REACTIVE PROTEIN Routine 05/12/2025 1: 23 PM EDT 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 Encounter for long-term (current) use of high-risk medication COMPREHENSIVE METABOLIC PANEL Routine 05/12/2025 1:23 PM EDT 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 Encounter for long-term (current) use of high-risk medication documented in this encounter Results * (ABNORMAL) CBC (No Diff) (05/12/2025 1:23 PM EDT) WBC 9.15 3.40 - 10.80 10*3/mm3 [facility] RBC 5.28 4.14 - 5.80 10*6/mm3 [facility] Hemoglobin 17.3 13.0 - 17.7 g/dL [facility] Hematocrit 52.4(H) 37.5 - 51.0 % [facility] MCV 99.2(H) 79.0 - 97.0 fL [facility] MCH 32.8 26.6 - 33.0 pg [facility] MCHC 33.0 31.5 - 35.7 g/dL [facility] RDW 13.3 12.3 - 15.4 % [facility] Platelets 290 140 - 450 10*3/mm3 [facility] Blood 05/12/2025 1:23 PM EDT 05/12/2025 Narrative [facility] - 05/12/2025 9:06 PM EDT Performed at: [address] [place] [id number] Rerolling Machine Operator: Abdirizak Luo MD, Phone: [phone] Patient Fasting: N Miya Benjamin APRN LAB BLOOD ORDERABLES Final Res ult [facility] [address] [place] [address], [facility] [address] [place] [address], * Sedimentation Rate (05/12/2025 1:23 PM EDT) Sed Rate 15 0 - 15 mm/hr [facility] Blood 05/12/2025 1:23 PM EDT 05/12/2025 Narrative [facility] - 05/12/2025 9:06 PM EDT Performed at: [address] [place] [address] [id number] Rerolling Machine Operator: Abdirizak Luo MD, Phone: [phone] Patient Fasting: N us Evva D Sourav OPERATION SPECIALIST LAB BLOOD ORDERABLES Final Res ult [facility] [address] [place] [address], [place] [phone] [facility] [address] [place] [address], [place] [phone] * C-reactive Protein (05/12/2025 1:23 PM EDT) Pathologist [facility] C-Reactive Protein <0.30 0.00 - 0.50 mg/dL [facility] Blood 05/12/2025 1:23 PM EDT 05/12/2025 Narrative [facility] - 05/12/2025 9:06 PM EDT Performed at: [address] [place] [id number] Rerolling Machine Operator: Abdirizak Luo MD, Phone: [phone] Patient Fasting: N us Evva D Sourav OPERATION SPECIALIST LAB BLOOD ORDERABLES Final Res ult [facility] [address] [place] [address], [place] [phone] [facility] [address] [place] [address], [place] [phone] * (ABNORMAL) Comprehensive Metabolic Panel (05/12/2025 1:23 PM EDT) Pathologist [facility] Glucose 104(H) 65 - 99 mg/dL [facility] BUN 13.0 6.0 - 20.0 mg/dL [facility] Creatinine 0.94 0.76 - 1.27 mg/dL [facility] EGFR Result 100.6 >60.0 mL/min/1.7 3 [facility] Comment: GFR Categories in Chronic Kidney Disease (CKD) GFR Category GFR (mL/min/1.73) Interpretation G1 90 or greater Normal or high (1) G2 60-89 Mild decrease (1) G3a 45-59 Mild to moderate decrease G3b 30-44 Moderate to severe decrease G4 15-29 Severe decrease G5 14 or less Kidney failure (1)In the absence of evidence of kidney disease, neither GFR category G1 or G2 fulfill the criteria for CKD. eGFR calculation 2020 CKD-EPI creatinine equation, which does not include race as a factor BUN/Creatinine Ratio 13.8 7.0 - 25.0 [facility] Sodium 138 136 - 145 mmol/L [facility] Potassium 4.7 3.5 - 5.2 mmol/L [facility] Chloride 103 98 - 107 mmol/L [facility] Total CO2 23.4 22.0 - 29.0 mmol/L [facility] Calcium 9.3 8.6 - 10.5 mg/dL [facility] Total Protein 6.8 6.0 - 8.5 g/dL [facility] Albumin 4.4 3.5 - 5.2 g/dL [facility] Globulin 2.4 gm/dL [facility] A/G Ratio 1.8 g/dL [facility] Total Bilirubin 0.4 0.0 - 1.2 mg/dL [facility] Alkaline Phosphatase 94 39 - 117 U/L [facility] AST (SGOT) 44(H) 1 - 40 U/L [facility] ALT (SGPT) 43(H) 1 - 41 U/L [facility] Blood 05/12/2025 1:23 PM EDT 05/12/2025 Narrative [facility] - 05/12/2025 9:06 PM EDT Performed at: [address] [place] [address] [id number] Rerolling Machine Operator: Abdirizak Luo MD, Phone: [phone] Patient Fasting: N us Miya Benjamin APRN LAB BLOOD ORDERABLES Final Res ult [facility] [address] [place] [address], [place] [phone] [facility] [address] [place] [address], [place] [phone] documented in this encounter Visit Diagnoses Diagnosis 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- Primary Immunodeficiency due to treatment with immunosuppressive medication Encounter for long-term (current) use of high-risk medication Encounter for long-term (current) use of other medications Alopecia areata Chronic pain of both ankles Smoker Tobacco use disorder Alcohol dependence with unspecified alcohol-induced disorder Other fatigue High risk medication use Encounter for medication monitoring Encounter for therapeutic drug monitoring documented in this encounter Care Teams Demand Planning Manager Relationship Specialty Start Date End Date Lashae Murguia APRN [facility] [place] [address] PCP - General Internal Medicine 07/21/24 documented as of this encounter
--- NOTE | 2025-07-01 08:56 | US_ITS ---
FINAL REPORT TECHNIQUE: Sonographic images of the right upper quadrant were obtained. CLINICAL HISTORY: UMBILICAL HERNIA FINDINGS: Limited sonographic images were obtained of the soft tissues in the region of the umbilicus. There is no evidence of mass or fluid collection. No hernia is identified. IMPRESSION: No hernia identified on this exam. If further evaluation is needed, recommend CT scan. Reviewed, Interpreted and Dictated by Ekaterina Noyola MD Transcribed by Dolores Luevano Authenticated and [facility]
--- OUTSIDE RECORDS SUMMARY | 2025-07-01 08:57 | XMS_ITS | Clinical Summary ---
Author Organization [facility] Address [address] [place] [address] Phone Care Team Providers Care Surveying Crew Rodman Name Role Phone Benedicto Cooney MD [phone] Conditions or Problems Problem Name Problem Code Onset Date Status Entry Date Provider Comment Standard Description Annotate Marijuana use 01513784 (SNOMED CT) 06/14 Active 06/14 Benedicto Cooney MD Harmful pattern of use of cannabis Steatohepatit is 351749116 (SNOMED CT) 06/14 Active 06/14 Benedicto Cooney MD Steatohepatitis Latent tuberculosis 743971877 (SNOMED CT) 06/14 Active 06/14 Benedicto Cooney MD Nonspecific tuberculin test reaction Nicotine dependence, cigarettes F17.210 (ICD-10-CM ) 06/12 Active 06/12 Blaire Werner Nicotine dependence, cigarettes, uncomplicated Alcohol abuse 55156460 (SNOMED CT) 06/12 Active 06/12 Blaire Caldera Harmful pattern of use of alcohol Rheumatoid arthritis with rheumatoid factor of left hip 780106435 (SNOMED CT) 06/12 Active 06/12 Blaire Werner Seropositive rheumatoid arthritis + QuantiFERON GOLD-TB skin test w/o active TB R76.12 (ICD-10-CM ) 06/12 Active 06/12 Blaire Werner Nonspecific reaction to cell mediated immunity measurement of gamma interferon antigen response without active tuberculosis Medications Medication Instructions Start Date Stop Date Generic Name NDC Provider OMEPRAZOLE 40 MG CPDR Take 1 Take 1 capsule by oral route every day before a meal omeprazole 83153421573 Francois Katerin PREDNISONE 5 MG TABS Take 2 tablet by oral route every day for one week, then take one tablet daily prednisone 09138578243 Francois Katerin ORENCIA 250 MG SOLR Administer orencia 750mg IV week 0, 2, 4 then every 4 weeks abatacept (with maltose) 38117168863 Francois Katerin Mobic 15 mg tablet Take 1 tablet by mouth once daily meloxicam 42141495298 Francois Leeton Medications Administered No information available. Allergies, Adverse [...] Automated count ABS NEUTROPH 8258 CELLS/UL 10*3/uL 5026-2666 H Neutrophils [#/volume] in Blood MPV 8.9 fL 7.5-12.5 N Platelet vian n volume [Entitic volume] in Blood by [...] Procedures Code Procedure Name Date Entry Date P8141x,[id number] CBC with Differential 2021 CPT-93309 CMP CPT-63574 Quantiferon Gold TB Assay 20 22/06/14 CPT-49022 T-SPOT CPT-96587 Hep A Total AB CPT-56198 Hep B Core AB, Total CPT-50210 Hep B Surface AB 177406 Hep B Surface AG CPT-80505 Hep C AB Vital Signs Date Name [...] Weight Measured 222 [lb_av] weight E& M Weight Measured 222 [lb_av] weight E& M Immunizations No information available. Advance Directives Directive Description Start Date NONE EST. AT THIS TIME
--- OUTSIDE RECORDS SUMMARY | 2025-07-01 08:58 | XMS_ITS | Encounter Summary ---
Author Organization [facility] Address [address] [place] [id number] Care Team Providers Care Paint Mixer Name Role Phone Lashae Murguia APRN Primary Care Provider + [phone] Encounter Details Date Type Department Care Team (Late Contact Info) Description 05/13/2025 Results Follow-Up [facility] [address] [phone] Vibha Washington APRN [address] [phone] Social History Tobacco Use Types Packs/Day Years Used Date Smoking Tobacco: Every Day Cigarettes Smokeless Tobacco: Never Alcohol Use Standard Drinks/Week Comments Yes 0 (1 standard drink = 0.6 oz pur e alcohol) BEER MORE THAN 5 GLASSES DAILY Sex and Gender Information Value Date Recorded Sex Assigned at Not on file Legal Sex Male 1:33 PM EDT Gender Identity Not on file Sexual Orientation Not on file documented as of this encounter Plan of Treatment Upcoming Encounters Date Type Department Care Team (Late st Contact Info) Description 09/14/2025 11:30 AM EDT Office Visit [facility] [address] [address] Vibha Washington APRN [address] [phone] documented as of this encounter Visit Diagnoses Not on filedocumented in this encounter Care Teams Paint Mixer Relationship Specialty Start Date End Date Lashae Murguia APRN [address] [place] [address] G3 [place] [address] PCP - General Internal Medicine 07/21/24 documented as of this encounter
--- OUTSIDE RECORDS SUMMARY | 2025-07-01 08:58 | XMS_ITS | Encounter Summary ---
Author Organization [facility] Address [address] [place] [address] Care Team Providers Care Justice Of The Peace Name Role Phone Lashae Murguia APRN Primary Care Provider + [phone] Reason for Visit * Reason Comments Med Refill Encounter Details Date Type Department Care Team (Late Contact Info) Description 06/27/2025 Refill [facility] [address] [address] Miya Benjamin APRN [address] [phone] Social History Tobacco Use Types Packs/Day Years [...] Description 09/14/2025 11:30 AM EDT Office Visit [facility] [address] [address] Vibha Washington APRN [address] [id number] documented as of this encounter Visit Diagnoses Not on filedocumented in this encounter Care Teams Justice Of The Peace Relationship Specialty Start Date End Date Lashae Murguia APRN [address] [place] [address] [place] [address] PCP - General Internal Medicine 07/21/24 documented as of this encounter
--- OUTSIDE RECORDS SUMMARY | 2025-07-01 08:58 | XMS_ITS | Encounter Summary ---
Author Organization [facility] Address [address] [place] [address] Care Team Providers Care Foam Cutting Supervisor Name Role Phone Lashae Murguia APRN Primary Care Provider + [phone] Encounter Details Date Type Department Care Team (Latest Contact Info) Description 05/12/2025 Travel Social History Tobacco Use Types Packs/Day Years [...] Description 09/14/2025 11:30 AM EDT Office Visit [facility] 330 [facility] [address] [place] [phone] Vibha Washington APRN 330 [place] [address] [place] [address] documented as of this encounter Visit Diagnoses Not on filedocumented in this encounter Care Teams Foam Cutting Supervisor Relationship Specialty Start Date End Date Lashae Murguia APRN [address] [place] [address] [address] [place] [address] PCP - General Internal Medicine 07/21/24 documented as of this encounter
--- OUTSIDE RECORDS SUMMARY | 2025-07-01 08:58 | XMS_ITS | Clinical Summary ---
Author Organization [facility] Address [address] [place] [address] Care Team Providers Care Locator Specialist Name Role Phone Lashae Murguia APRN Primary Care Provider + [phone] Allergies Active Allergy Reactions Criticality Noted Date Comments Acetaminophen Provider Review Needed 04/30/2024 Dextromethorphan Provider Review Needed 024 Doxylamine Succinate (Sleep) Provider Review Needed 04/30/2024 Pseudoephedrine Hcl Provider Review Needed 04/03 Medications omeprazole (priLOSEC) 40 MG capsule Take 1 capsule by mouth Daily. BEFORE A MEAL Active Upadacitinib ER (Rinvoq) 15 MG tablet sustained-rele ase 24 hour Take 1 tablet by mouth Daily. 30 tablet 5 4 Active albuterol sulfate HFA 108 (90 Base) MCG/ACT inhaler Inhale 1 puff 4 (Four) Times a Day. 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 30 tablet 3 5 Active celecoxib (CeleBREX) 200 MG capsule TAKE 1 CAPSULE BY MOUTH ONCE DAILY NEEDED FOR MILD PAIN 30 capsule 3 5 Active celecoxib (CeleBREX) 200 MG capsule Take 1 capsule by mouth Daily As Needed for Mild Pain. 30 capsule 3 5 06/28/20 25 Discontinued Active Problems Problem Noted Date Diagnosed Date Encounter for long-term (cur rent) use of high-risk medication 07/27/2024 Assessment & Plan (05/04/2025 12:43 PM EDT): He feels that sulfasalazine worsened his facial rash. He has not been taking this for quite some time. Assessment & Plan (01/04/2025 12:47 PM EST): He feels that sulfasalazine worsened his facial rash. He has not been taking this for quite some time. Assessment & Plan (09/01/2024 3:22 PM EDT): He feels that sulfasalazine worsened his facial rash. He has not been taking this for quite some time. 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 07/27/2024 Assessment & Plan (05/12/2025 1:19 PM EDT): Rinvoq well tolerated and helpful Infectious disease cleared him for the positive QTB in the past QTB negative and hepatitis panel negative 01/2025 No recent serious infections Assessment & Plan (01/05/2025 1:19 PM EST): Rinvoq well tolerated and helpful Infectious disease cleared him for the positive QTB in the past QTB negative and hepatitis panel negative on 09/25/24 No recent infections Assessment & Plan (09/01/2024 3:22 PM EDT): GRISELDA Bejarano- he does not feel this is working anymore We will PA Rinvoq Infectious disease cleared him for the positive QTB. QTB negative 05/2023- update today Last hepatitis panel negative 03/07/21- update today Other fatigue 07/27/2024 Assessment & Plan (08/25/2024 1:47 PM EDT): Update QTB today Encounter for medication monitoring 07/27/2024 Assessment & Plan (08/25/2024 1:47 PM EDT): Update hepatitis panel Alcohol dependence with unsp ecified alcohol-induced disorder 07/27/2024 Assessment & Plan (05/12/2025 1:13 PM EDT): Beer 12 or more daily. No hard [...] try to cut back on his drinking. Assessment & Plan (01/05/2025 1:17 PM EST): Beer 7-12 daily. No liquor. He reports he has cut back quite a bit on his alcohol intake, but still drinking. DUI 07/2021. He was told by GI that he has a fatty liver. We will cautiously continue Rinvoq, but will need to closely monitor liver function tests. We discussed that he needs to try to cut back on his drinking. Assessment & Plan (09/01/2024 3:23 PM EDT): Beer 7-12 daily. No liquor. He reports he has cut back quite a bit on his alcohol intake, but still drinking. DUI 07/2021. He was told by GI that he has a fatty liver. We will PA Rinvoq, but will need to closely monitor liver function tests. We discussed that he needs to try to cut back on his drinking. Smoker 07/27/2024 Assessment & Plan (05/04/2025 12:43 PM EDT): - Continue follow up with PCP. - Encouraged smoking cessation Assessment & Plan (01/04/2025 12:47 PM EST): - Continue follow up with PCP. - Encouraged smoking cessation Assessment & Plan (08/25/2024 1:47 PM EDT): - Continue follow up with PCP. - Encouraged smoking cessation Alopecia areata 07/27/2024 Assessment & Plan (05/12/2025 1:19 PM EDT): - He previously followed with dermatology--Dr. Reyes. - Referral back to dermatology for bumps on face. - He has had hair regrowth with stopping TNFs and hair regrowth has continued to improve with Rinvoq Assessment & Plan (01/05/2025 1:18 PM EST): - He previously followed with dermatology--Dr. Reyes. - Referral back to dermatology for bumps on face. - He has had hair regrowth with stopping TNFs and continued to progress with initiation of Rinvoq Assessment & Plan (09/01/2024 3:23 PM EDT): - He is no longer following with dermatology--Dr. Reyes. - Referral back to Dr. Reyes for bumps on face. - He has had hair regrowth with stopping TNFs and continued to progress Chronic pain of both ankles 07/27/2024 Assessment & Plan (05/12/2025 1:19 PM EDT): Bilateral ankle steroid injection: 08/20/23 Right ankle steroid injection: 08/20/24 Can inject every 3-4 months as needed Doing well today Assessment & Plan (01/05/2025 1:18 PM EST): Bilateral ankle steroid injection: 08/20/23 Right ankle steroid injection: 08/20/24 Can inject every 3-4 months as needed Doing well today Assessment & Plan (08/25/2024 1:48 PM EDT): Bilateral ankle steroid injection: 08/20/23 Right ankle steroid injection: 08/20/24 Assessment & Plan (08/20/2024 12:33 PM EDT): Bilateral ankle steroid injection: 08/20/23 Right ankle steroid injection: 08/20/24 See procedure documentation. Other rheumatoid arthritis w ith rheumatoid factor of left hip 04/30/2024 Assessment & Plan (05/12/2025 1:19 PM EDT): Dx 2019; +RF in high titer. +CCP [...] due to recent gastritis. Request records from [facility]. He has upcoming scope. - Check labs today - RTC 3 to 4 months Assessment & Plan (01/05/2025 1:17 PM EST): Dx 2019; +RF in high titer. +CCP antibody greater than 250. Avoid methotrexate with his history of alcohol abuse. Prefer IV medications or medications given by office due to compliance concerns. Previous: Enbrel (Injection site reaction/dizziness), Plaquenil (ineffective), Cimzia (alopecia), IV Orencia (07/2021 start- stop 09/01/24) Current: Rinvoq started 09/2024, prednisone 5 mg daily, Celebrex PRN - Continue Rinvoq which has helped his joint symptoms greatly - He has been off SSZ for awhile. He thinks this has worsened his facial rash. We will refer to dermatology. - Continue prednisone 5 mg daily for now - Continue Celebrex 200mg daily as needed - Check labs today - RTC 3 to 4 months Assessment & Plan (09/01/2024 3:22 PM EDT): Dx 2019; +RF in high titer. +CCP antibody greater than 250. Avoid methotrexate with his history of alcohol abuse. Prefer IV medications or medications given by office due to compliance concerns. Previous: Enbrel (Injection site reaction/dizziness), Plaquenil (ineffective), Cimzia (alopecia), IV Orencia (07/2021 start- stop 09/01/24) Current: , prednisone 5 mg daily, Celebrex PRN Flaring today with active synovitis in MCPS, some PIPs, and ankles. - Recent flare in 08/2024- Medrol dose pack which did help with pain but he continues to have swelling -He missed Orencia infusions for almost a year due to medication unavailability. He restarted infusions over the summer at [facility], but reports infusions are not helping him at all anymore. - Discussed changing biologic which she is agreeable to. We will PA Rinvoq. 1 month of samples given. We discussed he should not start samples until 1 month from last infusion. - He has been off SSZ for awhile. He thinks this has worsened his facial rash. We will refer to dermatology. - Continue prednisone 5 mg daily for now - Continue Celebrex 200mg daily as needed - RTC 3 to 4 months Assessment & Plan (08/20/2024 1:15 PM EDT): Dx 2019; +RF in high titer. +CCP antibody greater than 250. Avoid methotrexate with his history of alcohol abuse. Prefer IV medications or medications given by office due to compliance concerns. Previous: Enbrel (Injection site reaction/dizziness), Plaquenil (ineffective), Cimzia (alopecia) Current: IV Orencia (07/2021-only had 2 infusions. Restarted 10/2021), sulfasalazine 1000 mg BID, prednisone 5 mg daily, Celebrex PRN Flaring today with active synovitis in MCPS, some PIPs, and ankles. - He is flaring today. Will call in prednisone taper. - We will discuss changing biologic at upcoming visit. - Encouraged compliance with sulfasalazine 1000 mg BID. - Continue prednisone 5 mg daily after taper dose - Continue Celebrex 200mg po BID as needed Resolved Problems Problem Noted Date Diagnosed Date Resolved Date Right ankle pain 08/18/2024 08/18/2024 Encounters Date Type Department Care Team Description 06/27/2025 Refill [facility] [address] [address] Miya Benjamin, ARMORED VEHICLE OFFICER 05/13/2025 Results Follow-Up [facility] [address] [address] Flo Washington, ERNESTINA 05/12/2025 1:00 PM EDT Office Visit [facility] [address] [address] Miya Benjamin, ARMORED VEHICLE OFFICER 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 (Primary Dx); Immunodeficiency due to treatment with immunosuppressive medication; Encounter for long-term (current) use of high-risk medication; Alopecia areata; Chronic pain of both ankles; Smoker; Alcohol dependence with unspecified alcohol-induced disorder; Other fatigue; High risk medication use; Encounter for medication monitoring 05/12/2025 Telephone [facility] [address] [address] Miya Benjamin APRN 05/12/2025 Travel from Last 3 Months Social History Tobacco Use Types Packs/Day Years [...] on file Sexual Orientation Not on file Last Filed Vital Signs Vital Sign Reading [...] Mass Index 32.96 05/12/2025 1:00 PM EDT Plan of Treatment Upcoming Encounters Date Type Department Care Team (Late st Contact Info) Description 09/14/2025 11:30 AM EDT Office Visit [facility] [address] [address] Vibha Washington APRN [address] [address] Health Maintenance Due Date Last Done Comments COVID-19 Vaccine (#1) 1983 Pneumococcal Vaccine 0-49 (1 of 2 - PCV) 1997 COLOGUARD 2023 COLON CANCER SCREENING 5 YEA R SIGMOIDOSCOPY 2023 COLONOSCOPY 2023 COLORECTAL CANCER SCREENING 2023 CT COLONOGRAPHY 2023 FECAL OCCULT BLOOD TEST 2023 FIT Testing (1 year) 2023 ANNUAL PHYSICAL 04/30/2024 INFLUENZA VACCINE 09/01/2025 TDAP/TD VACCINES (3 - Td or Tdap) 07/29/2031 021, 07/08/2011 HEPATITIS C SCREENING Completed 01/05/2025 Procedures Procedure Name Priority Date/Time Associated Diagnosis Comments CBC (NO DIFF) Routine 05/12/2025 1:23 PM EDT 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 Encounter for long-term (current) use of high-risk medication SEDIMENTATION RATE Routine 05/12/2025 1: 23 PM [...] for long-term (current) use of high-risk medication HEPATITIS PANEL, ACUTE Routine 01/05/2025 1:22 PM EST 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 Other fatigue Encounter for medication monitoring from Last 3 Months or Most Recently Relevant to Health Maintenance Results * Sedimentation Rate (05/12/2025 1:23 PM EDT) Sed Rate 15 0 - 15 mm/hr [facility] Blood 05/12/2025 1:23 PM EDT 05/12/2025 Narrative [facility] ([facility]ORY) - 05/12/2025 9:06 PM EDT Performed at: 01 - [facility] [address] [place], [place] [id number] Interior Designer: Abdirizak Luo MD, Phone: [phone] Patient Fasting: N us Evva Rachel Sourav ARMORED VEHICLE OFFICER LAB BLOOD ORDERABLES Final Res ult [facility] (AMBULATORY) [address] [place] [address], [facility] [address] [place] [address], [place] [phone] * (ABNORMAL) CBC (No Diff) (05/12/2025 1:23 PM EDT) [facility] WBC 9.15 3.40 - 10.80 10*3/mm3 [facility] [...] - 05/12/2025 9:06 PM EDT Performed at: 01 - [facility] [address] [place], [place] [id number] Interior Designer: Abdirizak Luo MD, Phone: [phone] Patient Fasting: N us Miya Benjamin ARMORED VEHICLE OFFICER LAB BLOOD ORDERABLES Final Res ult [facility] (AMBULATORY) [address] [place] [address], [facility] [address] [place] [address], * C-reactive Protein (05/12/2025 1:23 PM EDT) Pathologist [facility] C-Reactive Protein <0.30 0.00 - 0.50 mg/dL [facility] Blood 05/12/2025 1:23 PM EDT 05/12/2025 Narrative [facility] (AMBULATORY) - 05/12/2025 9:06 PM EDT Performed at: [address] [place] [id number] Interior Designer: Abdirizak Luo MD, Phone: [phone] Patient Fasting: N us Miya Benjamin ARMORED VEHICLE OFFICER LAB BLOOD ORDERABLES Final Res ult [facility] (AMBULATORY) [address] [place] [address], [facility] [address] [place] [address], [place] [phone] * (ABNORMAL) Comprehensive Metabolic Panel (05/12/2025 1:23 [...] - 05/12/2025 9:06 PM EDT Performed at: [address] [place] [id number] Interior Designer: Abdirizak Luo MD, Phone: [phone] Patient Fasting: N us Miya Benjamin ARMORED VEHICLE OFFICER LAB BLOOD ORDERABLES Final Res ult [facility] ([facility]) [address] [place] [address], [place] [phone] [facility] [address] [place] [address], [place] [phone] * Hepatitis Panel, Acute (01/05/2025 1:22 PM EST) Hepatitis B Surface Ag Non-Reacti ve Non-Reacti ve 01/06/2025 12:27 AM EST [facility] Hep A IgM Non-Reacti ve Non-Reacti ve 01/06/2025 12:27 AM EST [facility] Hep B C IgM Non-Reacti ve Non-Reacti ve 01/06/2025 12:27 AM EST [facility] Hepatitis C Ab Non-Reacti ve Non-Reacti ve 01/06/2025 12:27 AM EST [facility] Blood Venipuncture / Unknown 01/05/2025 1:22 PM EST 01/05/2025 1:22 PM EST Narrative [facility] - 01/06/2025 12:27 AM EST Results may be falsely decreased if patient taking Biotin. us Miya Benjamin APRN LAB BLOOD ORDERABLES Final Res ult [facility]
[address] [place] [address], from Last 3 Months or Most Recently Relevant to Health Maintenance Insurance [facility] PPO Care Teams Locator Specialist Relationship Specialty Start Date End Date Lashea Murguia APRN [address] [place] [address] PCP - General Internal Medicine 07/21/24
--- OUTSIDE RECORDS SUMMARY | 2025-07-01 08:58 | XMS_ITS ---
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
--- OUTSIDE RECORDS SUMMARY | 2025-07-01 08:58 | XMS_ITS | Encounter Summary ---
Author Organization [facility] Address [address] [place] [address] Care Team Providers Care Cook Helper Preserves Name Role Phone Lashae Murguia APRN Primary Care Provider + [phone] Encounter Details Date Type Department Care Team ([facility] Contact Info) Description 12/21/2024 Telephone [facility] [address] [address] Eros Enriquez MD [address] [id number] Social History Tobacco Use Types Packs/Day Years [...] Upcoming Encounters Date Type Department Care Team ([facility] Contact Info) Description 09/14/2025 11:30 AM EDT Office Visit [facility] [address] [address] Vibha Washington APRN [address] [id number] documented as of this encounter Visit Diagnoses Not on filedocumented in this encounter Care Teams Cook Helper Preserves Relationship Specialty Start Date End Date Lashae Murguia APRN [address] [place] [address] [address] [address] PCP - General Internal Medicine 07/21/24 documented as of this encounter
--- OUTSIDE RECORDS SUMMARY | 2025-07-01 08:58 | XMS_ITS | Clinical Summary ---
Author Organization [facility] Address [address] [id number] Care Team Providers Care Interpretive Program Coordinator Name Role Phone Lashae Murguia APRN Primary Care Provider [phone] Allergies No known active allergies Social History Tobacco Use Types Packs/Day Years Used Date Smoking Tobacco: Never Assessed PHQ-2 Answer Date Recorded Patient Health Questionnaire-2 Score 0 08/01/2021 Sex and Gender Information Value Date Recorded Sex Assigned at Not on file Legal Sex Male 7:56 PM EDT Gender Identity Not on file Sexual Orientation Not on file Last Filed Vital Signs Vital Sign Reading Time Taken Comments Blood Pressure 128/85 08/01/2021 1:56 PM EDT Pulse 69 08/01/2021 1:56 PM EDT Temperature 36.5 C (97.7 F) 08/01/2021 1:56 PM EDT Respiratory Rate 16 07/30/2021 5:07 AM EDT Oxygen Saturation 97% 08/01/2021 1:56 PM EDT Inhaled Oxygen Concentration - - Weight 96.9 kg (213 lb 11.2 oz) 08/01/2021 1:56 PM EDT Height 182.9 cm (6') 08/01/2021 1:56 PM EDT Body Mass Index 28.98 08/01/2021 1:56 PM EDT Plan of Treatment Health Maintenance Due Date Last Done Comments [facility]-Depression Screening 1978 [facility]-/Child/Adol SDOH Screenings 1978 [facility]- SDOH Screenings 1996 [facility]-Adult SDOH Screenings 1996 [facility]-Hepatitis B Vaccines (1 of 3 - 19+ 3-dose series) 1997 CT Colonography 2023 Colonoscopy 2023 FIT-DNA 2023 FIT 2023 FOBT 2023 Sigmoidoscopy 2023 [facility]-Colorectal Cancer Screening 2023 [id number] Vaccine ( season) 2024 [facility]-Influenza Vaccine (#1) 2025 [facility]-Zoster Vaccines (1 of 2) 2028 [facility]-DTaP,Tdap,and Td Vaccine s (3 - Td or Tdap) 07/29/2031 07/29/2021, 07/08/2011 HPV Vaccines Aged Out No longer eligi ble based on patient's age to complete this topic [facility]-HIB Vaccines Aged Out No longer e ligible based on patient's age to complete this topic [facility]-Hepatitis A Vaccines Aged Out No longer eligible based on patient's age to complete this topic [facility]-IPV Vaccines Aged Out No longer e ligible based on patient's age to complete this topic [facility]-Pneumococcal Vaccine: Pediatrics (0 to 5 Years) and At-Risk Patients (6 to 49 Years) Aged Out No longer eligible b ased on patient's age to complete this topic [facility]-Rotavirus Vaccines Aged Out No lo nger eligible based on patient's age to complete this topic [place] [address] [place] Care Teams Interpretive Program Coordinator Relationship Specialty Start Date End Date Lashae Murguia APRN [address] [place] [address] (work) [facility] - General 07/30/20
--- OUTSIDE RECORDS SUMMARY | 2025-07-01 08:58 | XMS_ITS | Encounter Summary ---
Author Organization [facility] Address [address] [place] [address] Care Team Providers Care Wind Site Manager Name Role Phone Lashae Murguia UNIX ENGINEER Primary Care Provider + [phone] Encounter Details Date Type Department Care Team (Late st Contact Info) Description 05/12/2025 Telephone [facility] [address] [address] Miya Benjamin APRN [address] [address] Social History Tobacco Use Types Packs/Day Years [...] on file documented as of this encounter Miscellaneous Notes * Telephone Encounter - Rebekah Byers MA - 05/12/2025 2:20 PM EDT Called [facility] and requested Labs and scans to be faxed to us. Spoke with [facility]. * Telephone Encounter - Miya Benjamin APRN - 05/12/2025 1:16 PM EDT Please request the recent labs and abdominal imaging from [facility]. Thanks documented in this encounter Plan of Treatment Upcoming Encounters Date Type Department Care Team (Late st Contact Info) Description 09/14/2025 11:30 AM EDT Office Visit [facility] 330 [facility] [address] [place] [id number] Vibha Washington APRN 330 [facility] [address] [place], [place] [id number] documented as of this encounter Visit Diagnoses Not on filedocumented in this encounter Care Teams Wind Site Manager Relationship Specialty Start Date End Date Lashae Mugruia APRN [address] [place] [phone] PCP - General Internal Medicine 07/21/24 documented as of this encounter
== END 2025-07-01 23:59 | disposition home or self-care (01) ==
LOC: RAD 08:55
PROVIDERS: PCP Nurse Practitioner Family; Visit Provider Nurse Practitioner Family
DX: K42.9 Umbilical hernia without obstruction or gangrene (principal)
CPT/HCPCS: 76705